=== PATIENT | female | born 1940 | race Caucasian/White ===

== ENCOUNTER 2023-07-19 11:20 | Outpatient (AMB) | payer MEDICARE, OTHER, SELFPAY ==
--- NOTE | 2023-07-19 11:21 | AM.OFFWIN_ITS ---
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 in clinic with c/o hard of hearing on left ear since Saturday. Pt was seen at an in [place] and diagnosed with Otitis media and given Amoxicillin x 7 days - she is still taking, day 3 today. She reports dizziness and feeling of fullness left ear. [facility] Social History Patient Tobacco Use Status: Never used Tobacco Review of Systems Const All systems reviewed & are unremarkable except as noted in HPI and below Physical Exam Vital Signs: Last Vital Signs Temp 97.6 F 07/19/23 11:23 Pulse 81 07/19/23 11:23 BP 130/70 07/19/23 11:23 Pulse Ox 95 07/19/23 11:23 Oxygen Delivery Method Room Air 07/19/23 11:23 BMI result Body Mass Index 24.6 Const General: comfortable and no acute distress HEENT Head: Yes normocephalic and Yes atraumatic Ears: external ears normal, TM normal on the right and TM abnormal (right ear with small amount of blood seen) bulging, erythematous and retracted General nose exam: No nasal discharge present Face and sinus: Yes sinuses nontender Mouth: moist mucous membranes Throat: Yes posterior oropharynx normal Eyes Pupils: Equal, round and reactive pupils present EOM: EOMs intact bilaterally Resp Effort & Inspection: normal respiratory effort and able to speak in complete sentences Auscultation: clear to auscultation bilaterally Cardio Rate: regular rate Rhythm: regular rhythm Neuro Cranial nerves: Yes Equal, round and reactive pupils present Assessment & Plan Assessment & Plan (1) Otitis media: Code(s): H66.90 - Otitis media, unspecified, unspecified ear Qualifiers: Otitis media type: suppurative Chronicity: acute Laterality: left Recurrence: not specified as recurrent Spontaneous tympanic membrane rupture: without spontaneous rupture Qualified Code(s): H66.002 - Acute suppurative otitis media without spontaneous rupture of ear drum, left ear Plan - Complete Abx as directed - Acetaminophen for pain relief - RTC if symptoms worse. Coding Level of Care Code New Pt Level 3 (52120) Diagnoses Acute suppurative otitis media of left ear without spontaneous rupture of tympanic membrane, recurrence not specified H66.002 Otitis media type: suppurative Chronicity: acute Laterality: left Recurrence: not specified as recurrent Spontaneous tympanic membrane rupture: without spontaneous rupture Time Spent (min) 15
[2023-07-19 11:23] VITALS: BP 130/70; PULSE 81; TEMP 36.4; O2SAT 95; BMI 24.6
== END 2023-07-19 11:52 | disposition home or self-care (01) ==
PROVIDERS: Visit Provider Nurse Practitioner Family
DX: H66.002 Acute suppurative otitis media without spontaneous rupture of ear drum, left ear (principal)
CPT/HCPCS: 99203

== ENCOUNTER 2023-12-16 08:38 | Outpatient (REF) | payer MEDICARE, SELFPAY ==
[2023-12-16 08:50] LABS: MANUAL DIFF FLAG NO
[2023-12-16 09:16] LABS: Basophils Percent Auto 0.5 % (0-2); Eosinophils Absolute Auto 0.1 X10*3/uL (0.0-0.4); Eosinophils Percent Auto 1.4 % (0-4); Hemoglobin 14.2 g/dl (12.0-16.0); Imm Gran Abs Auto 0.02 X10*3/uL (0.00-0.03); Imm Gran Pct Auto 0.3 % (0.0-0.4); Lymphocytes Absolute Auto 1.4 X10*3/uL (1.2-4.9); Lymphocytes Percent Auto 21.8 % (20-40); Mean Corpuscular Hemoglobin 31.8 pg (27.0-33.0); Mean Corpuscular Volume 96.4 fL (80.0-98.0); Mean Platelet Volume 10.5 fL (9.4-12.3); Monocytes Absolute Auto 0.7 X10*3/uL (0.1-1.2); Monocytes Percent Auto 10.8 % (2-11); Neutrophils Absolute Auto 4.1 x10*3/uL (2.0-8.3); Neutrophils Percent Auto 65.2 % (45-73); Platelet Count 268 X10*3/uL (160-400); Red Blood Count 4.46 X10*6/uL (4.20-5.50); Red Cell Distribution Width 13.3 % (11.0-16.0); White Blood Count 6.2 X10*3/uL (4.8-10.8)
[2023-12-16 09:51] LABS: Erythrocyte Sedimentation Rate 7 MM/HR (0-20)
[2023-12-16 10:07] LABS: Alanine Aminotransferase 18 U/L (0-31); Albumin Level 4.1 g/dL (3.5-5.0); Alkaline Phosphatase 56 U/L (39-117); Anion Gap 14 (12-20); Aspartate Amino Transferase 19 U/L (5-31); Bilirubin Total 0.6 mg/dL (0.0-1.0); Blood Urea Nitrogen 20 mg/dL (9-16); C Reactive Protein 0.27 mg/dL (< or = 0.50); Calcium 9.5 mg/dL (8.4-10.2); Carbon Dioxide 26 mmol/L (22-29); Chloride 106 mmol/L (96-108); Cholesterol 152 mg/dL (<200); Estimated Glomerular Filt Rate > 60; Free T4 (Free Thyroxine) 0.93 ng/dL (0.71-1.85); Glucose Random 98 mg/dL (60-115); HDL Cholesterol 59 mg/dL (>40); LDL Cholesterol Calculated 68 mg/dL (<100); Potassium 3.7 mmol/L (3.3-5.1); Sodium 142 mmol/L (135-145); Thyroid Stimulating Hormone 1.32 uIU/mL (0.32-4.0); Total Protein 6.4 g/dL (6.5-8.0); Triglycerides 125 mg/dL (<150); Vitamin D 25-OH Total 60.8 ng/mL (>30)
[2023-12-16 13:06] LABS: Folate 14.1 ng/mL (> or = 4.0); Vitamin B12 728 pg/mL (200-900)
== END 2023-12-16 08:39 | disposition home or self-care (01) ==
LOC: HO.LAB 08:38
PROVIDERS: PCP Internal Medicine; Visit Provider Internal Medicine
DX: I48.91 Unspecified atrial fibrillation (principal); E78.00 Pure hypercholesterolemia, unspecified; M35.3 Polymyalgia rheumatica
CPT/HCPCS: 36415; 80053; 80061; 82306; 82607; 82746; 84439; 84443; 85025; 85652; 86140

== ENCOUNTER 2023-12-24 12:46 | Outpatient (AMB) | payer MEDICARE, OTHER, SELFPAY ==
[2023-12-24 12:48] VITALS: BP 104/62; PULSE 67; O2SAT 98; BMI 25.1
--- NOTE | 2023-12-24 12:48 | A.OFFPC_ITS ---
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 Package Handler Required: No Allergies No Known Allergies Allergy (Verified 12/24/23 13:03) Medication List - Last Reconciled 12/24/23 by Nina Daniels PA-C atorvastatin 40 mg PO DAILY lisinopril 20 mg PO BID metoprolol succinate ER 25 mg PO DAILY prednisone 1 mg PO DAILY rivaroxaban (Xarelto) 20 mg PO DAILY sertraline 25 mg PO DAILY Tobacco use date assessed: 12/24/23 Fall risk assessment: No Falls in past year Last assessed Fall Risk: 12/24/23 Dental Screening Dental Screen Date: 12/24/23 Did you have a dental visit in the last 12 months?: Yes Did you have a dental problem in the last 6 months where you did not have access to dental care?: No Was dental information given to patient?: Patient has dentist HPI 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 In review of the notes, patient was seen in the walk in clinic 06/2023 for otitis media. Dexa completed 01/2023. She has recently transitioning from [facility] to [facility]. She follows with [facility] for AFib and follows with a health service coordinator for polymyalgia rheumatica and has an appointment with [facility] in December to discuss left knee replacement. 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 She also mentions she has been having diarrhea intermittently for the last 2 weeks and has 1-2 episodes a day. She has no other concerns or complaints at this time. [facility] Surgical History H/O right knee surgery History of cataract surgery Family History Father Prostate cancer Mother Hypertension Heart attack Brother Heart attack Social History Patient Tobacco Use Status: Never used Tobacco Cognitive needs: No Hearing needs: No Vision needs: No Questionnaire PHQ-9 Over the last 2 weeks, how often have you been bothered by any of the following problems? 1. Little interest or pleasure in doing things: not at all 2. Feeling down, depressed, or hopeless: not at all 3. Trouble falling or staying asleep, or sleeping too much: not at all 4. Feeling tired or having little energy: not at all 5. Poor appetite or overeating: not at all 6. Feeling bad about yourself - or that you are a failure or have let yourself or your family down: not at all 7. Trouble concentrating on things, such as reading the newspaper or watching television: not at all 8. Moving or speaking so slowly that other people could have noticed. Or the opposite - being so fidgety or restless that you have been moving around a lot more than usual: not at all 9. Thoughts that you would be better off or of hurting yourself in some way: not at all Total score: 0 Depression Screening Interpretation: Negative Depression Screening Done: Yes 45513 - PHQ-9 Billing: Yes Source: Developed by Drs. Artemio Jose, Connie Gallegos, Philippe Littlejohn and colleagues, with an educational dulce from [employer]. Thrive Questionnaire Date Thrive assessed: 12/24/23 I am a: Patient What is your living situation today?: I have a steady place to live Within the past 12 months, did the food you bought not last and you didn't have the money to get more?: Never true Within the past 12 months, did you worry whether your food would run out before you got money to buy more?: Never true Do you have trouble paying for medicines?: No Do you have trouble getting transportation to medical appointments?: No Do you have trouble paying your heating and electricity bill?: No Do you have trouble taking care of your child, family member or friend?: No Do you have trouble with day-to-day activities such as bathing, preparing meals, shopping, managing finances, etc.?: No Are you currently unemployed and looking for a job?: No Are you interested in more education?: No Please select the resources that you would like help with: None Currently or been in a relationship where the following occur: No concerns reported THRIVE Score: 0 AUDIT C Alcohol Use Questionnaire (AUDIT-C) 1. How often do you have a drink containing alcohol?: Never 3. How often do you have six or more drinks on one occasion?: Never Total Score: 0 ANH-7 AMB Questionnaire ANH-7 Date ANH - 7 assessed: 12/24/23 Feeling nervous, anxious, or on edge: 0 = Not at all Not being able to stop or control worryin = Not at all Worrying too much about different things: 0 = Not at all Trouble relaxin = Not at all Being so restless that it is hard to sit still: 0 = Not at all Becoming easily annoyed or irritable: 0 = Not at all Feeling afraid as if something awful might happen: 0 = Not at all Total ANH-7 score (0-4 normal; 5-9 mild; 10-14 moderate; 15-21 severe): 0 Source: Developed by Drs. Artemio Jose, Connie Gallegos, Philippe Littlejohn and colleagues, with an educational dulce from [employer]. ANH-7 Assessment Billing ANH-7 Assessment Tool: ANH-7 Assessment 36277 Review of Systems Const Denies body aches, Denies fatigue, Denies fever(s), Denies frequent falls, Denie s headache(s) and Denies weakness Eyes Reports no additional complaints and Denies change in vision ENT Details: History of hiatal hernia Reports Normal hearing present, Denies dysphagia, Denies dizziness, Denies facial pain, Denies headache(s), Denies nasal congestion and Denies odynophagia Card Denies chest pain, Denies syncope, Denies irregular heart rhythm, Denies leg edema, Denies lightheadedness, Denies palpitations and Denies dyspnea Resp Denies cough and Denies dyspnea GI Denies constipation, Denies dysphagia, Denies dyspepsia, Reports diarrhea, Denies nausea, Denies odynophagia and Denies vomiting Denies urinary frequency, Denies dysuria, Denies urinary hesitancy and Denies urinary urgency Musc Details: Left knee pain Denies back pain and Denies myalgias Skin/Breast Reports system reviewed and no additional complaints, except as documented Neuro Reports Normal hearing present, Denies dizziness, Denies syncope, Denies frequent falls, Denies headache(s) and Denies weakness Psych Reports no additional complaints Endo Denies fatigue and Denies palpitations Physical exam (Primary Care) Vital Signs: Last Vital Signs Pulse 67 12/24/23 12:48 BP 104/62 12/24/23 12:48 Pulse Ox 98 12/24/23 12:48 Oxygen Delivery Method Room Air 12/24/23 12:48 BMI result Body Mass Index 25.1 Tobacco/Smoking Status: Tobacco use Status Tobacco use date assessed 12/24/23 12/24/23 12:52 Patient Tobacco Use Status Never used Tobacco 12/24/23 12:52 PHQ-9: PHQ-9 Score PHQ-9: Total score 0 12/24/23 12:52 Depression Screening Interpretation: Negative Thrive Assessment: Date of Thrive Assessment Date Thrive assessed 12/24/23 12/24/23 12:52 Currently or been in a relationship where the following occur: No concerns reported Const General: cooperative, healthy appearing, comfortable and no acute distress Orientation/consciousness: patient oriented x3 HENMT Head: Yes normocephalic Ears: hearing grossly normal bilaterally General nose exam: Normal external nose present Eyes General: appearance normal, both eyes and all related structures Conjunctivae: conjunctivae normal Neck Neck: Yes full ROM and Yes no lymphadenopathy Resp Effort & Inspection: normal respiratory effort Auscultation: clear to auscultation bilaterally, no crackles, no rales, no rhonchi and no wheezes Cardio Rate: regular rate Rhythm: regular rhythm GI Palpation (GI): Soft to palpation, nontender and no guarding Auscultation: Hyperactive bowel sounds present Skin General skin exam: no rashes or lesions noted Neuro General: patient oriented x3 Cranial nerves: Yes Normal hearing present Gait exam (Neuro): Normal gait present Extrem Other: Lateral deviation of the left patella General: Yes full ROM and No edema Psych Affect: normal affect Attitude: cooperative Insight: Good insight present (Psych) Judgement: Good judgement present (Psych) Assessment and Plan Assessment & Plan (1) 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 (2) GERD (gastroesophageal reflux disease): Code(s): K21.9 - Gastro-esophageal reflux disease without esophagitis Plan: Patient takes famotidine and Tums as needed with good relief. Was previously established with Gastroenterology and referred to Gastroenterology today. (3) Osteopenia: Code(s): M85.80 - Other specified disorders of bone density and structure, unspecified site Plan: Last DEXA scan was 2022 we will repeat next year. Continue with weight-bearing exercises as tolerated and dietary calcium intake. (4) Left knee pain: Code(s): M25.562 - Pain in left knee Plan: Lateral deviation of left patella seems to be chronic. Patient has chronic left knee pain and was supposed to have knee replacement several years ago but due to health concerns the procedure was postponed. Is scheduled to see [facility] in December to re-evaluate for left knee replacement. (5) Diarrhea: Code(s): R19.7 - Diarrhea, unspecified Plan: Patient has been diarrhea ongoing for the last 2 weeks. Episodes are 1-2 times per day and typically small amounts. May trial [id number] fiber supplements to bulk the stools or Imodium as needed. Stressed the importance of proper hydration. (6) Polymyalgia rheumatica: Code(s): M35.3 - Polymyalgia rheumatica Plan: On prednisone daily. Continue to follow with health service coordinator. (7) Hypertension: Code(s): I10 - Essential (primary) hypertension Plan: Continue on current blood pressure medication. Avoid salt intake and encourage healthy diet and regular exercise. (8) Hypercholesterolemia: Code(s): E78.00 - Pure hypercholesterolemia, unspecified Plan: Avoid foods that are high in cholesterol such as red meat, fried foods, eggs and baked goods. Triglyceride goal of less than 150 and LDL goal of less than 100. Continue on atorvastatin. Plan This note was constructed using voice recognition software. While every effort has been made to ensure accuracy and apprentice jockey, still areas may have been included sometimes these areas may affect the content or meeting of the given symptoms. Total time spent caring for the patient today was 45 minutes. This includes time spent before the visit reviewing the chart, time spent during the visit, and time spent after the visit and documentation. Orders: Referrals Gastroenterology Referral K21.9 - Gastro-esophageal reflux disease without esophagitis, K22.70 - Felipe's esophagus without dysplasia Coding Level of Care Code New Pt Level 4 (79434) Diagnoses Barretts esophagus K22.70 GERD (gastroesophageal reflux disease) K21.9 Osteopenia M85.80 Left knee pain M25.562 Diarrhea R19.7 Polymyalgia rheumatica M35.3 Hypertension I10 Hypercholesterolemia E78.00 Additional Codes ANH-7 Assessment Billing - ANH-7 Assessment Tool: ANH-7 Assessment 90345 ([id number])
== END 2023-12-24 14:02 | disposition home or self-care (01) ==
DX: M35.3 Polymyalgia rheumatica (principal); K22.70 Barrett's esophagus without dysplasia; K21.9 Gastro-esophageal reflux disease without esophagitis; M85.80 Other specified disorders of bone density and structure, unspecified site; M25.562 Pain in left knee; R19.7 Diarrhea, unspecified; I10 Essential (primary) hypertension; E78.00 Pure hypercholesterolemia, unspecified
CPT/HCPCS: 99214

== ENCOUNTER 2024-01-21 10:42 | Outpatient (AMB) | payer MEDICARE, OTHER, SELFPAY ==
[2024-01-21 10:48] VITALS: BP 108/52; PULSE 67; O2SAT 97; BMI 25.8
--- NOTE | 2024-01-21 10:48 | A.OFFPC_ITS ---
Vital Signs 01/21/24 10:48 Height 5 ft 5 in Weight 155 lb 3.287 oz BMI 25.8 BP 108/52 L Blood Pressure Location Lt brachial Position Sitting Pulse 67 Pulse Source Pulse Oximeter Pulse Oximetry (%) 97 Oxygen Delivery Method Room Air Intake Visit Reasons: 1 month follow up Sociology Faculty Member Required: No Accompanied by: Self / Same As Patient Allergies No Known Allergies Allergy (Verified 01/21/24 10:50) Medication List - Last Reconciled 01/21/24 by Nina Daniels PA-C atorvastatin 40 mg PO DAILY lisinopril 20 mg PO BID metoprolol succinate ER 25 mg PO DAILY prednisone 1 mg PO DAILY rivaroxaban (Xarelto) 20 mg PO DAILY sertraline 25 mg PO DAILY Tobacco use date assessed: 12/24/23 Fall risk assessment: No Falls in past year Last assessed Fall Risk: 01/21/24 Dental Screening Dental Screen Date: 12/24/23 HPI 1 month follow up HPI Details 83 year old female with past history of AFib on anticoagulation, GERD with Felipe's, hypercholesterolemia, hypertension, and polymyalgia rheumatica in for follow up. Patient was seen by [facility] treatment [facility] December 2023. She tells us today she is having a left total knee replacement February [address] Donald at [facility]. She is seeing the arthritis treatment center every 3-4 months and has been taken off of prednisone. She was having diarrhea the last time we saw her and child fiber which helped diarrhea and now has completely resolved. She has yet to see Gastroenterology for Barretts esophagus and has a visit coming up in the next few months. [facility] Surgical History H/O right knee surgery History of cataract surgery Family History Father Prostate cancer Mother Hypertension Heart attack Brother Heart attack Social History Housing: Apartment Patient Tobacco Use Status: Never used Tobacco Tobacco use type: Cigarette e-Cigarette/Vaping Use: Never Used Current occupational status: retired Cognitive needs: No Hearing needs: No Vision needs: No Questionnaire PHQ-9 Over the last 2 weeks, how often have you been bothered by any of the following problems? 1. Little interest or pleasure in doing things: not at all 2. Feeling down, depressed, or hopeless: not at all 3. Trouble falling or staying asleep, or sleeping too much: not at all 4. Feeling tired or having little energy: not at all 5. Poor appetite or overeating: not at all 6. Feeling bad about yourself - or that you are a failure or have let yourself o r your family down: not at all 7. Trouble concentrating on things, such as reading the newspaper or watching television: not at all 8. Moving or speaking so slowly that other people could have noticed. Or the opposite - being so fidgety or restless that you have been moving around a lot more than usual: not at all 9. Thoughts that you would be better off or of hurting yourself in some way: not at all Total score: 0 Depression Screening Interpretation: Negative Depression Screening Done: Yes 45866 - PHQ-9 Billing: Yes Source: Developed by Drs. Artemio Jose, Connie Gallegos, Philippe gan nd colleagues, with an educational dulce from [employer]. Thrive Questionnaire Date Thrive assessed: 12/24/23 AUDIT C Alcohol Use Questionnaire (AUDIT-C) 1. How often do you have a drink containing alcohol?: Never 3. How often do you have six or more drinks on one occasion?: Never Total Score: 0 ANH-7 AMB Questionnaire ANH-7 Date ANH - 7 assessed: 12/24/23 Source: Developed by Drs. Artemio Jose, Connie Gallegos, Philippe Littlejohn and colleagues, with an educational dulce from [employer]. Review of Systems Const Denies body aches, Denies chills and Denies fever(s) Eyes Reports no additional complaints ENT Denies dizziness Card Denies chest pain, Denies edema, Denies irregular heart rhythm, Denies lightheadedness and Denies dyspnea Resp Denies cough and Denies dyspnea GI Denies abdominal pain, Denies constipation, Denies diarrhea, Denies nausea and Denies vomiting Reports no additional complaints Musc Details: Left knee pain Reports no additional complaints and Denies abnormal gait Skin/Breast Reports system reviewed and no additional complaints, except as documented Neuro Denies abnormal gait and Denies dizziness Psych Reports no additional complaints Physical exam (Primary Care) Vital Signs: Last Vital Signs Pulse 67 01/21/24 10:48 BP 108/52 L 01/21/24 10:48 Pulse Ox 97 01/21/24 10:48 Oxygen Delivery Method Room Air 01/21/24 10:48 BMI result Body Mass Index 25.8 Tobacco/Smoking Status: Tobacco use Status Tobacco use date assessed 12/24/23 01/21/24 10:53 Patient Tobacco Use Status Never used Tobacco 01/21/24 10:53 Tobacco use type Cigarette 01/21/24 10:53 e-Cigarette/Vaping Use Never Used 01/21/24 10:53 PHQ-9: PHQ-9 Score PHQ-9: Total score 0 01/21/24 11:18 Depression Screening Interpretation: Negative Thrive Assessment: Date of Thrive Assessment Date Thrive assessed 12/24/23 01/21/24 10:53 Const General: cooperative, healthy appearing, comfortable and no acute distress Orientation/consciousness: patient oriented x3 HENMT Head: Yes normocephalic Ears: hearing grossly normal bilaterally General nose exam: Normal external nose present Eyes General: appearance normal, both eyes and all related structures Conjunctivae: conjunctivae normal Neck Neck: Yes full ROM and Yes no lymphadenopathy Resp Effort & Inspection: normal respiratory effort Auscultation: clear to auscultation bilaterally, no crackles, no rales, no rhonchi and no wheezes Cardio Rate: regular rate Rhythm: regular rhythm Skin General skin exam: no rashes or lesions noted Neuro General: patient oriented x3 Gait exam (Neuro): Normal gait present Extrem General: Yes normal to inspection, Yes full ROM and No edema Psych Affect: normal affect Attitude: cooperative Insight: Good insight present (Psych) Judgement: Good judgement present (Psych) Assessment and Plan Assessment & Plan (1) Diarrhea: Code(s): R19.7 - Diarrhea, unspecified Plan: Has resolved this time continue with fiber as needed. (2) Left knee pain: Code(s): M25.562 - Pain in left knee Plan: Has left total knee replacement in January with the orthopedic surgeons. (3) GERD (gastroesophageal reflux disease): Code(s): K21.9 - Gastro-esophageal reflux disease without esophagitis Plan: Follow up with Gastroenterology next appointment. Plan Follow up in 6 months for annual exam. This note was constructed using voice recognition software. While every effort has been made to ensure accuracy and senior controls engineer, still areas may have been included sometimes these areas may affect the content or meeting of the given symptoms. Total time spent caring for the patient today was 20 minutes. This includes time spent before the visit reviewing the chart, time spent during the visit, and time spent after the visit and documentation. Coding Level of Care Code Est Pt Level 3 (23207) Diagnoses Diarrhea R19.7 Left knee pain M25.562 GERD (gastroesophageal reflux disease) K21.9
== END 2024-01-21 11:42 | disposition home or self-care (01) ==
DX: R19.7 Diarrhea, unspecified (principal); M25.562 Pain in left knee; K21.9 Gastro-esophageal reflux disease without esophagitis
CPT/HCPCS: 99213

== ENCOUNTER 2024-03-10 15:25 | Outpatient (AMB) | payer MEDICARE, OTHER, SELFPAY ==
[2024-03-10 15:25] VITALS: BP 112/62; PULSE 66; O2SAT 97; BMI 25.0
--- NOTE | 2024-03-10 15:25 | A.OFFPC_ITS ---
Vital Signs 03/10/24 15:25 Height 5 ft 5 in Weight 150 lb 5.684 oz BMI 25.0 BP 112/62 Blood Pressure Location Lt brachial Position Sitting Pulse 66 Pulse Source Pulse Oximeter Pulse Oximetry (%) 97 Oxygen Delivery Method Room Air Intake Visit Reasons: Shauna Sinha 02/25 knee replacement Intake Note: Patient is here for hospital discharge follow up. Patient was discharged from [facility] on 02/26/24 Security Sme Required: No Allergies No Known Allergies Allergy (Verified 03/10/24 15:28) Medication List - Last Reconciled 03/10/24 by Nina Daniels PA-C amlodipine 2.5 mg PO DAILY amlodipine 5 mg PO DAILY atorvastatin 40 mg PO DAILY celecoxib (Celebrex) 50 mg PO BID lisinopril 20 mg PO BID metoprolol succinate ER 25 mg PO DAILY rivaroxaban (Xarelto) 20 mg PO DAILY sertraline 25 mg PO DAILY Tobacco use date assessed: 12/24/23 Fall risk assessment: No Falls in past year Last assessed Fall Risk: 03/10/24 Dental Screening Dental Screen Date: 12/24/23 HPI Shauna [facility] 02/25 knee replacement HPI Details 83 year old female with past history of AFib on anticoagulation, GERD with Felipe's, hypercholesterolemia, hypertension, and polymyalgia rheumatica last seen November 2023 coming in for follow up after discharge from [facility] 02/26/2024. Patient was initially admitted to [facility] after left total knee replacement with Dr. Orellana through [facility]. Patient has been working with in-home physical therapy and will transition to outpatient PT in the next few weeks. She initially had a wound vac placed after the surgery which was removed by the surgeon 02/23 without complication and x- ray was done at that time which was normal. She had the sutures out last week. She is currently using Tylenol and celecoxib as needed for pain. She does report morning nausea that resolves within 1 hour of being awake and also fatigue but does mentioned she sleeps very poorly since the surgery. These symptoms began postoperatively. REPLACED BY [facility] Surgical History History of total left knee replacement H/O right knee surgery History of cataract surgery Family History Father Prostate cancer Mother Hypertension Heart attack Brother Heart attack Social History Housing: Apartment Patient Tobacco Use Status: Never used Tobacco Tobacco use type: Cigarette e-Cigarette/Vaping Use: Never Used Current occupational status: retired Cognitive needs: No Hearing needs: No Vision needs: No Questionnaire Thrive Questionnaire Date Thrive assessed: 12/24/23 AUDIT C Alcohol Use Questionnaire (AUDIT-C) 1. How often do you have a drink containing alcohol?: Never 2. How many drinks containing alcohol do you have on a typical day when you are drinking?: 1 or 2 3. How often do you have six or more drinks on one occasion?: Never Total Score: 0 ANH-7 AMB Questionnaire ANH-7 Date ANH - 7 assessed: 12/24/23 Source: Developed by Drs. Artemio Jose, Connie Gallegos, Philippe Littlejohn and colleagues, with an educational dulce from [employer]. Review of Systems Const Denies body aches, Denies chills, Reports fatigue and Denies fever(s) Eyes Reports no additional complaints ENT Reports no additional complaints Card Denies chest pain, Denies edema, Denies irregular heart rhythm, Denies leg edema, Denies lightheadedness and Denies dyspnea Resp Denies dyspnea GI Reports nausea and Denies vomiting Musc Details: Left knee pain Reports abnormal gait (with walker) Neuro Reports abnormal gait (with walker) Endo Reports fatigue Physical exam (Primary Care) Vital Signs: Last Vital Signs Pulse 66 03/10/24 15:25 BP 112/62 03/10/24 15:25 Pulse Ox 97 03/10/24 15:25 Oxygen Delivery Method Room Air 03/10/24 15:25 BMI result Body Mass Index 25.0 Tobacco/Smoking Status: Tobacco use Status Tobacco use date assessed 12/24/23 01/21/24 10:53 Patient Tobacco Use Status Never used Tobacco 01/21/24 10:53 Tobacco use type Cigarette 01/21/24 10:53 e-Cigarette/Vaping Use Never Used 01/21/24 10:53 Thrive Assessment: Date of Thrive Assessment Date Thrive assessed 07/30/24 08/27/24 10:53 Const General: cooperative, healthy appearing, comfortable and no acute distress Orientation/consciousness: patient oriented x3 HENMT Head: Yes normocephalic Ears: hearing grossly normal bilaterally General nose exam: Normal external nose present Eyes General: appearance normal, both eyes and all related structures Conjunctivae: conjunctivae normal Neck Neck: Yes full ROM and Yes no lymphadenopathy Resp Effort & Inspection: normal respiratory effort Auscultation: clear to auscultation bilaterally, no crackles, no rales, no rhonchi and no wheezes Cardio Rate: regular rate Rhythm: regular rhythm Skin General skin exam: no rashes or lesions noted Neuro General: patient oriented x3 Gait exam (Neuro): Normal gait present Extrem General: Yes normal to inspection, Yes full ROM and No edema Psych Affect: normal affect Attitude: cooperative Insight: Good insight present (Psych) Judgement: Good judgement present (Psych) Coding Level of Care Code Est Pt Level 3 (37053) Diagnoses Left knee pain M25.562 Nausea R11.0 Atrial fibrillation I48.91 Assessment & Plan Assessment & Plan (1) Left knee pain: Comment: Status post left total knee replacement January 2024 Code(s): M25.562 - Pain in left knee Category: Medical Plan: She has been doing well postoperatively in working with physical therapy and home and we will transition to outpatient physical therapy within the next few weeks. She is currently using celecoxib and Tylenol as needed for pain. Advised patient to follow up with surgeon as celecoxib can increase the risk of bleed when paired with Xarelto. She feels her pain is well managed at this time and is following with [facility] regularly. (2) Nausea: Code(s): R11.0 - Nausea Category: Medical Plan: Patient admits to summons server nausea without vomiting which typically resolves within 1 hour of being awake. This nausea began postoperatively. Advised to fo llow up with surgeon as this may be related to the use of celecoxib or a pain response. Continue to monitor symptoms and reach out if they worsen or persist. (3) Atrial fibrillation: Code(s): I48.91 - Unspecified atrial fibrillation Category: Medical Plan: Currently working with Dr. Collado through [facility]. Advised to follow up with her exchange trouble shooter as she does report 1 episode of possible atrial fibrillation despite being on anticoagulation and rate control she had 1 episode heart racing. Advised if she can not get a hold of her exchange trouble shooter in the next few days to reach out to the office and Holter monitor will be ordered. Patient understands and will reach out as needed. Plan This note was constructed using voice recognition software. While every effort has been made to ensure accuracy and transcription manager, still areas may have been included sometimes these areas may affect the content or meeting of the given symptoms. Total time spent caring for the patient today was 30 minutes. This includes time spent before the visit reviewing the chart, time spent during the visit, and time spent after the visit and documentation.
== END 2024-03-10 16:03 | disposition home or self-care (01) ==
DX: M25.562 Pain in left knee (principal); R11.0 Nausea; I48.91 Unspecified atrial fibrillation

== ENCOUNTER → 2024-03-10 15:25 | Outpatient (BNVA) | payer MEDICARE, OTHER, SELFPAY | DX: M25.562 Pain in left knee (principal); R11.0 Nausea; I48.91 Unspecified atrial fibrillation | CPT/HCPCS: 99212 ==

== ENCOUNTER 2024-04-02 09:16 | Outpatient (AMB) | payer MEDICARE, OTHER, SELFPAY ==
--- NOTE | 2024-04-02 09:19 | MHC.OFFVIS ---
Vital Signs 04/02/24 09:23 Height 5 ft 5 in Weight 146 lb 13.246 oz BMI 24.4 BP 96/46 L Blood Pressure Location Rt brachial Position Sitting Pulse 76 Intake Visit Reasons: GERD, Felipe's esophagus. Intake Note: Dinora presents as a new patient for evaluation and management GERD and Felipe's esophagus. CC: Patient Allergies No Known Allergies Allergy (Verified 06/03/24 14:18) HPI HPI GERD, Felipe's esophagus.: Details: 83-year-old female here for initial evaluation of GERD and SSBE . She is referred by Nina Daniels. PMX Afib - Xarelto High cholesterol Osteopenia Polymyalgia rheumatica Hypertension Diarrhea Barretts esophagus/GERD * SURGICAL HISTORY Cataract surgery Left total knee replacement Right knee surgery TKR * ALLERGIES: NKDA * [employer] LABS: Laboratory Tests 12/16/23 08:48 WBC 6.2 Hgb 14.2 Hct 43.0 Plt Count 268 Estimated GFR > 60 Total Bilirubin 0.6 AST 19 ALT 18 Alkaline Phosphatase 56 TSH 1.32 TODAY'S VISIT ROV [address] Swift Phone ? tel:[phone] Fax ? Address [address] [place] [address],?[place]?[id number] She is here today with Jackie a healthcare coordinator at [facility] She has a hx of prn budesonide, ? microscopic colitis - never had food allergies. She did have a history of IBS having diarrhea, when she would have it, once in the morning. She felt like this was fairly well controlled until she had her knee replaced recently and then she had to straight weeks of diarrhea. However, this now seems to be resolving and may have been due to all of the medications and stress on her body from surgery. She says that she used to have heartburn but she was progress down from omeprazole to Tums and famotidine. She is uncertain when she had her last EGD but her decision science analyst is as above at [facility] and will try to get those records just to be sure so we know how to guide her going forward. She is quite in agreement with the plan and since I do have over 177 pages of records to look through and we will also request a direct GI records will get together again in 8 weeks so I can give her an opinion on her care going forward. Return office visit in 8 weeks [facility] Medical History Annual physical exam Surgical History Hx of neck surgery History of esophagogastroduodenoscopy (EGD) H/O colonoscopy History of total left knee replacement H/O right knee surgery History of cataract surgery Family History Father Prostate cancer Mother Hypertension Heart attack Brother Heart attack Social History Housing: Apartment Alcohol intake: current Alcohol intake frequency: holidays/special occasions only Patient Tobacco Use Status: Never used Tobacco Tobacco use type: Cigarette e-Cigarette/Vaping Use: Never Used Current occupational status: retired Cognitive needs: No Hearing needs: No Vision needs: No Review of Systems Const Denies fatigue, Denies fever(s), Denies night sweats, Denies poor appetite and Denies weight loss ENT Reports Normal hearing present, Denies dental pain, Denies dysphagia, Denies hearing loss, Denies mouth pain, Denies odynophagia, Denies throat swelling, Denies tongue swelling and Reports other (Dentition adequate) Card Reports no additional complaints Resp Reports no additional complaints GI Details: Denies abdominal pain, Denies melena, Denies bloating, Denies hematochezia, Denies constipation, Denies GI cramping, Denies dysphagia, Denies excessive flatus, Denies early satiety, Reports heartburn, Denies diarrhea, Reports loose stools, Denies nausea, Denies odynophagia, Denies vomiting and Denies hematemesis Skin/Breast Denies pruritus, Denies lesions, Denies rash and Denies jaundice Neuro Reports Normal hearing present and Denies Abnormal speech present Endo Denies fatigue Aller/Immun Denies throat swelling and Denies tongue swelling Physical Exam Vital Signs: Last Vital Signs Pulse 76 04/02/24 09:23 BP 96/46 L 04/02/24 09:23 BMI result Body Mass Index 24.4 Const General: cooperative, no acute distress, well developed and well groomed Nutritional Appearance: average body habitus and well nourished Orientation/consciousness: oriented to person, oriented to place and oriented to time Limitations: No language barrier HEENT Head: Yes normocephalic and Yes atraumatic Eyes General: appearance normal, both eyes and all related structures Pupils: Equal, round and reactive pupils present Neck Neck: Yes normal visual inspection and Yes no lymphadenopathy Thyroid: Thyroid normal Resp Effort & Inspection: normal respiratory effort and able to speak in complete sentences Auscultation: clear to auscultation bilaterally Cardio Rate: regular rate Rhythm: regular rhythm Heart sounds: Normal, physiologic split S2 sound present Peripheral pulses: radial pulses present and posterior tibial pulses present GI Inspection: No distended, No Abdominal panniculus present and Yes obesity Palpation (GI): Soft to palpation, nontender, no guarding, not rigid and No hepatosplenomegaly present Percussion: Yes normal to percussion Auscultation: normal bowel sounds Rectal Exam - Female: deferred Skin General skin exam: no rashes or lesions noted, turgor normal, skin not dry, no jaundice, No spider nevi and no striae Rashes: no rashes Nails: normal Neuro General: oriented to person, oriented to place and oriented to time Cranial nerves: Yes Equal, round and reactive pupils present and Yes Normal hearing present Speech: No Abnormal speech present Extrem Other: very enlarged bilateral pointer MCP joint General: Yes normal to inspection, No clubbing, No cyanosis and No edema Psych Appearance: grossly normal and well kempt Mental Status: mental status grossly normal Speech and movement: Normal speech and movement present Affect: normal affect Attitude: cooperative Thought process: Normal thought process present and not confabulating Thought content: Normal thought content present Insight: Good insight present (Psych) Judgement: Good judgement present (Psych) Assessment & Plan Assessment & Plan (1) Barretts esophagus: Code(s): K22.70 - Felipe's esophagus without dysplasia Category: Medical (2) GERD (gastroesophageal reflux disease): Code(s): K21.9 - Gastro-esophageal reflux disease without esophagitis Category: Medical Plan ROV [address] Swift Phone ? tel:[phone] Fax ? Address [address] [place] [address],?[place]?[phone] She is here today with Jackie a healthcare coordinator at [facility] She has a hx of prn budesonide, ? microscopic colitis - never had food allergies. She did have a history of IBS having diarrhea, when she would have it, once in the morning. She felt like this was fairly well controlled until she had her knee replaced recently and then she had to straight weeks of diarrhea. However, this now seems to be resolving and may have been due to all of the medications and stress on her body from surgery. She says that she used to have heartburn but she was progress down from omeprazole to Tums and famotidine. She is uncertain when she had her last EGD but her decision science analyst is as above at [facility] and will try to get those records just to be sure so we know how to guide her going forward. She is quite in agreement with the plan and since I do have over 177 pages of records to look through and we will also request a direct GI records will get together again in 8 weeks so I can give her an opinion on her care going forward. Return office visit in 8 weeks Orders: Orders EGD - GI Use Only 04/02/24 K21.9 - Gastro-esophageal reflux disease without esophagitis, K22.70 - Felipe's esophagus without dysplasia [place] barium swallow 04/02/24 K21.9 - Gastro-esophageal reflux disease without esophagitis, K22.70 - Felipe's esophagus without dysplasia Coding Level of Care Code New Pt Level 3 (66962) Diagnoses Barretts esophagus K22.70 GERD (gastroesophageal reflux disease) K21.9
[2024-04-02 09:23] VITALS: BP 96/46; PULSE 76; BMI 24.4
== END 2024-04-02 10:22 | disposition home or self-care (01) ==
LOC: HO.HGI 09:17
PROVIDERS: Visit Provider Nurse Practitioner
DX: K22.70 Barrett's esophagus without dysplasia (principal); K21.9 Gastro-esophageal reflux disease without esophagitis
CPT/HCPCS: 99203

== ENCOUNTER → 2024-04-02 09:16 | Outpatient (BNVA) | payer MEDICARE, OTHER, SELFPAY | PROVIDERS: Visit Provider Nurse Practitioner | DX: K21.9 Gastro-esophageal reflux disease without esophagitis (principal); K22.70 Barrett's esophagus without dysplasia | CPT/HCPCS: 99202 ==

== ENCOUNTER 2024-05-26 09:12 | Outpatient (REF) | payer MEDICARE, OTHER, SELFPAY ==
[2024-05-26 09:29] LABS: MANUAL DIFF FLAG NO
[2024-05-26 10:54] LABS: Basophils Percent Auto 0.5 % (0-2); Eosinophils Absolute Auto 0.2 X10*3/uL (0.0-0.4); Hematocrit 37.7 % (37.0-47.0); Hemoglobin 12.5 g/dl (12.0-16.0); Imm Gran Abs Auto 0.01 X10*3/uL (0.00-0.03); Imm Gran Pct Auto 0.2 % (0.0-0.4); Lymphocytes Absolute Auto 1.8 X10*3/uL (1.2-4.9); Lymphocytes Percent Auto 31.9 % (20-40); Mean Corpuscular HGB Conc 33.2 g/dl (31.0-35.0); Mean Corpuscular Hemoglobin 30.3 pg (27.0-33.0); Mean Corpuscular Volume 91.3 fL (80.0-98.0); Mean Platelet Volume 10.8 fL (9.4-12.3); Monocytes Absolute Auto 0.6 X10*3/uL (0.1-1.2); Monocytes Percent Auto 10.4 % (2-11); Neutrophils Absolute Auto 3.1 x10*3/uL (2.0-8.3); Platelet Count 266 X10*3/uL (160-400); Red Blood Count 4.13 X10*6/uL (4.20-5.50); Red Cell Distribution Width 13.9 % (11.0-16.0); White Blood Count 5.7 X10*3/uL (4.8-10.8)
[2024-05-26 11:10] LABS: Estimated Average Glucose 123 mg/dL; Hemoglobin A1C 128.2191 umol/L; Hemoglobin A1c % 5.9 % (<6.0); Total Hemoglobin (HGBA1C) 3141.9974 umol/L
[2024-05-26 11:37] LABS: Cholesterol 136 mg/dL (<200); HDL Cholesterol 43 mg/dL (>40); LDL Cholesterol Calculated 65 mg/dL (<100); Triglycerides 140 mg/dL (<150)
== END 2024-05-26 09:13 | disposition home or self-care (01) ==
LOC: HO.LAB 09:12
PROVIDERS: PCP Internal Medicine
DX: K22.70 Barrett's esophagus without dysplasia (principal); I10 Essential (primary) hypertension; I48.91 Unspecified atrial fibrillation; E78.00 Pure hypercholesterolemia, unspecified; E11.65 Type 2 diabetes mellitus with hyperglycemia
CPT/HCPCS: 36415; 80061; 83036; 85025

== ENCOUNTER 2024-06-03 12:25 | Outpatient (AMB) | payer MEDICARE, OTHER, SELFPAY ==
[2024-06-03 12:33] VITALS: BP 131/50; PULSE 60; BMI 24.9
--- NOTE | 2024-06-03 12:33 | A.OFFVIS_ITS ---
Vital Signs 06/03/24 12:33 Height 5 ft 4 in Weight 145 lb BMI 24.9 BP 131/50 L Blood Pressure Location Lt brachial Position Sitting Pulse 60 Intake Visit Reasons: 8 weeks f/u Intake Note: Patient 8 weeks follow up Patient cc: acid reflex on and off/diarrhea Funeral Home Attendant Required: No Accompanied by: Self / Same As Patient Allergies No Known Allergies Allergy (Verified 06/03/24 12:34) HPI HPI 8 weeks f/u : Details: Assessment & Plan (1) Barretts esophagus: Code(s): K22.70 - Felipe's esophagus without dysplasia Category: Medical (2) GERD (gastroesophageal reflux disease): Code(s): K21.9 - Gastro-esophageal reflux disease without esophagitis Category: Medical Orders: Orders EGD - GI Use Only Today K21.9 - Gastro-esophageal reflux disease without esophagitis, K22.70 - Felipe's esophagus without dysplasia FL barium swallow Today K21.9 - Gastro-esophageal reflux disease without esophagitis, K22.70 - Felipe's esophagus without dysplasia She is here today with Jackie a healthcare coordinator at [facility] She has a hx of prn budesonide, ? microscopic colitis - never had food allergies. She did have a history of IBS having diarrhea, when she would have it, once in the morning. She felt like this was fairly well controlled until she had her knee replaced recently and then she had to straight weeks of diarrhea. However, this now seems to be resolving and may have been due to all of the medications and stress on her body from surgery. She says that she used to have heartburn but she was progress down from omeprazole to Tums and famotidine. She is uncertain when she had her last EGD but her cafeteria operator is as above at [facility] and will try to get those records just to be sure so we know how to guide her going forward. She is quite in agreement with the plan and since I do have over 140 pages of records to look through and we will also request a direct GI records will get together again in 8 weeks so I can give her an opinion on her care going forward. EGD BIOPSY BARIUM SWALLOW TODAY'S VISIT LYMPHOCYTIC-PLASMACYTIC COLLITIS She is very bothered by diarrhea, will do a year of budesonide and then a taper. She is not taking the famotidine every day, and I advise her to do as directed r/t the SSBE. She has not yet heard about the procedures or barium swallow. Her AFib is well controlled and she denies any respiratory problems. There are no prior problems with anesthesia or sedation. No ID problems ROV next avail [facility] Medical History (Updated 06/03/24 @ 13:02 by RAMBO Santos) Annual physical exam Surgical History Hx of neck surgery History of esophagogastroduodenoscopy (EGD) H/O colonoscopy History of total left knee replacement H/O right knee surgery History of cataract surgery Family History Father Prostate cancer Mother Hypertension Heart attack Brother Heart attack Social History Housing: Apartment Alcohol intake: current Alcohol intake frequency: holidays/special occasions only Patient Tobacco Use Status: Never used Tobacco Tobacco use type: Cigarette e-Cigarette/Vaping Use: Never Used Current occupational status: retired Cognitive needs: No Hearing needs: No Vision needs: No Review of Systems Const Denies fatigue, Denies fever(s), Denies night sweats, Denies poor appetite and Denies weight loss Eyes Details: glasses Reports requires corrective lenses ENT Reports Normal hearing present, Denies dental pain, Denies dysphagia, Denies hearing loss, Denies mouth pain, Denies odynophagia, Denies throat swelling, Denies tongue swelling and Reports other (Dentition adequate) Card Reports no additional complaints Resp Reports no additional complaints GI Details: Denies abdominal pain, Denies melena, Denies bloating, Denies hematochezia, Denies constipation, Denies GI cramping, Denies dysphagia, Denies excessive flatus, Denies early satiety, Reports heartburn, Reports diarrhea, Denies nausea, Denies odynophagia, Denies vomiting and Denies hematemesis Skin/Breast Denies pruritus, Denies lesions, Denies rash and Denies jaundice Neuro Reports Normal hearing present and Denies Abnormal speech present Endo Denies fatigue Aller/Immun Denies throat swelling and Denies tongue swelling Physical Exam Vital Signs: Last Vital Signs Pulse 60 06/03/24 12:33 BP 131/50 L 06/03/24 12:33 BMI result Body Mass Index 24.9 Const General: cooperative, no acute distress, well developed and well groomed Nutritional Appearance: average body habitus and well nourished Orientation/consciousness: oriented to person, oriented to place and oriented to time Limitations: No language barrier HEENT Head: Yes normocephalic and Yes atraumatic Eyes General: appearance normal, both eyes and all related structures Pupils: Equal, round and reactive pupils present Neck Neck: Yes normal visual inspection and Yes no lymphadenopathy Thyroid: Thyroid normal Resp Effort & Inspection: normal respiratory effort and able to speak in complete sentences Auscultation: clear to auscultation bilaterally Cardio Rate: regular rate Rhythm: regular rhythm Heart sounds: Normal, physiologic split S2 sound present Peripheral pulses: radial pulses present and posterior tibial pulses present GI Inspection: No distended and No Abdominal panniculus present Palpation (GI): Soft to palpation, nontender, no guarding, not rigid and No hepatosplenomegaly present Percussion: Yes normal to percussion Auscultation: normal bowel sounds Rectal Exam - Female: deferred Skin General skin exam: no rashes or lesions noted, turgor normal, skin not dry, no jaundice, No spider nevi and no striae Rashes: no rashes Nails: normal Neuro General: oriented to person, oriented to place and oriented to time Cranial nerves: Yes Equal, round and reactive pupils present and Yes Normal hearing present Speech: No Abnormal speech present Extrem General: Yes normal to inspection, No clubbing, No cyanosis and No edema Psych Appearance: grossly normal and well kempt Mental Status: mental status grossly normal Speech and movement: Normal speech and movement present Affect: normal affect Attitude: cooperative Thought process: Normal thought process present and not confabulating Thought content: Normal thought content present Insight: Good insight present (Psych) Judgement: Good judgement present (Psych) Assessment & Plan Assessment & Plan (1) Lymphocytic colitis: Code(s): K52.832 - Lymphocytic colitis Category: Medical (2) GERD (gastroesophageal reflux disease): Code(s): K21.9 - Gastro-esophageal reflux disease without esophagitis Category: Medical (3) Barretts esophagus: Code(s): K22.70 - Felipe's esophagus without dysplasia Category: Medical (4) Diarrhea: Code(s): R19.7 - Diarrhea, unspecified Category: Medical Plan LYMPHOCYTIC-PLASMACYTIC COLLITIS She is very bothered by diarrhea, will do a year of budesonide and then a taper. She is not taking the famotidine every day, and I advise her to do as directed r/t the SSBE. She has not yet heard about the procedures or barium swallow. Her AFib is well controlled and she denies any respiratory problems. There are no prior problems with anesthesia or sedation. No ID problems ROV next avail Medications: New budesonide DR-ER 9 mg (3 x 3 mg) PO DAILY 90 ea 6RF K52.832 - Lymphocytic colitis famotidine 40 mg PO DAILY 30 tabs 6RF K21.9 - Gastro-esophageal reflux disease without esophagitis, K22.70 - Felipe's esophagus without dysplasia, K52.832 - L ymphocytic colitis, R19.7 - Diarrhea, unspecified Coding Level of Care Code Est Pt Level 3 (26003) Diagnoses Lymphocytic colitis K52.832 GERD (gastroesophageal reflux disease) K21.9 Barretts esophagus K22.70 Diarrhea R19.7
== END 2024-06-03 13:17 | disposition home or self-care (01) ==
PROVIDERS: PCP Internal Medicine; Visit Provider Nurse Practitioner
DX: K52.832 Lymphocytic colitis (principal); K21.9 Gastro-esophageal reflux disease without esophagitis; K22.70 Barrett's esophagus without dysplasia; R19.7 Diarrhea, unspecified
CPT/HCPCS: 99213

== ENCOUNTER → 2024-06-03 12:25 | Outpatient (BNVA) | payer MEDICARE, OTHER, SELFPAY | PROVIDERS: PCP Internal Medicine; Visit Provider Nurse Practitioner | DX: Z00.00 Encounter for general adult medical examination without abnormal findings (principal); K52.832 Lymphocytic colitis; K21.9 Gastro-esophageal reflux disease without esophagitis; K22.70 Barrett's esophagus without dysplasia; M35.3 Polymyalgia rheumatica; I10 Essential (primary) hypertension; E78.00 Pure hypercholesterolemia, unspecified; I48.91 Unspecified atrial fibrillation; M85.80 Other specified disorders of bone density and structure, unspecified site; L03.90 Cellulitis, unspecified; L30.9 Dermatitis, unspecified; R19.7 Diarrhea, unspecified; Z79.01 Long term (current) use of anticoagulants; Z79.899 Other long term (current) drug therapy | CPT/HCPCS: 96127; 99212 ==

== ENCOUNTER 2024-06-03 13:50 | Outpatient (AMB) | payer MEDICARE, OTHER, SELFPAY ==
[2024-06-03 13:57] VITALS: BP 126/74; PULSE 60; O2SAT 98; BMI 25.4
--- NOTE | 2024-06-03 13:57 | AM.OFFVISMDC ---
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 Accompanied by: Daughter Allergies No Known Allergies Allergy (Verified 06/03/24 14:18) Medication List - Last Reconciled 06/03/24 by Nina Daniels PA-C amlodipine 2.5 mg PO DAILY amlodipine 5 mg PO DAILY atorvastatin 40 mg PO DAILY B complex with M-lymbpwvop-Wu caps PO budesonide DR-ER 9 mg (3 x 3 mg) PO DAILY cholecalciferol (vitamin D3) 50 mcg PO DAILY [collagen protein powder PO DAILY] famotidine 40 mg PO DAILY lisinopril 20 mg PO BID metoprolol succinate ER 25 mg PO DAILY acagvjjodsiq-ozlzwghp-alpiiu 1 tab PO DAILY rivaroxaban (Xarelto) 20 mg PO DAILY sertraline 25 mg PO DAILY Do you need a note to return to daycare/school/sports/work: No HPI AWV HPI Details 84-year-old female with past medical history of atrial fibrillation on anticoagulation, GERD with Felipe's esophagus, hypercholesterolemia, hypertension and polymyalgia rheumatica last seen 02/2024 coming in for annual wellness exam.? In review of the notes patient was seen by GI 04/02/2024 scheduled for EGD and barium swallow. Patient follows with [facility] Cardiology and Rheumatology through arthritis treatment center. her spine supervisor been managing her bone density scans and she is due for 1. She states she will occasionally have itchiness all over her body and has been using Aveeno lotion. she has no other concerns today [facility] Medical History Annual physical exam Surgical History Hx of neck surgery History of esophagogastroduodenoscopy (EGD) H/O colonoscopy History of total left knee replacement H/O right knee surgery History of cataract surgery Family History Father Prostate cancer Mother Hypertension Heart attack Brother Heart attack Social History Housing: Apartment Alcohol intake: current Alcohol intake frequency: holidays/special occasions only Patient Tobacco Use Status: Never used Tobacco Tobacco use type: Cigarette e-Cigarette/Vaping Use: Never Used Current occupational status: retired Cognitive needs: No Hearing needs: No Vision needs: No Questionnaire Medicare Wellness Checkup What is your age?: 80 or older What gender do you identify with?: female During the past 4 weeks, how much have you been bothered by emotional problems such as feeling anxious, depressed, irritable, sad or downhearted, and blue?: slightly During the past 4 weeks, has your physical & emotional health limited your social activities with family, friends, neighbors, or groups?: not at all During the past 4 weeks, how much bodily pain have you generally had?: very mild pain During the past 4 weeks, was someone available to help you if you needed & wanted help?: yes, as much as I wanted During the past 4 weeks, what was the hardest physical activity you could do for at least 2 minutes?: moderate Can you get to places out of walking distance without help? (For eg., can you travel alone on buses, taxis or drive your car?): Yes Can you go shopping for groceries or clothes without someone's help?: Yes Can you prepare your own meals?: Yes Can you do your housework without help?: Yes Because of any health problems, do you need the help of another person with your personal care needs such as eating, bathing, dressing or getting around the house?: No Can you handle your own money without help?: Yes During the past 4 weeks, how would you rate your health in general?: good During the past 4 weeks how have things been going for you?: pretty well Are you having difficulties driving your car?: no Do you always fasten your seat belt when you are in a car?: yes, usually During past 4 weeks, have you been bothered by the following: never: Falling or dizzy when standing up, Sexual problems?, Teeth or denture problems? and Problems using the telephone? and seldom: Trouble eating well? and Tiredness or fatigue? Have you fallen 2 or more times in the past year?: No Are you afraid of falling?: No Are you a smoker?: no During the past 4 weeks, how many drinks of wine, beer, or other alcoholic beverages did you have?: 2-5 drinks per week Do you exercise for about 20 minutes 3 or more times a week?: yes, some of the time Have you been given information to help with the following?: no: Hazards in your house that might hurt you? and no: Keeping track of your medications? How often do you have trouble taking medicines the way you have been told to take them?: I always take medicine as prescribed How confident are you that you can control & manage most of your health problems?: very confident What is your race?: White PHQ-9 Over the last 2 weeks, how often have you been bothered by any of the following problems? 1. Little interest or pleasure in doing things: not at all 2. Feeling down, depressed, or hopeless: not at all 3. Trouble falling or staying asleep, or sleeping too much: not at all 4. Feeling tired or having little energy: several days 5. Poor appetite or overeating: not at all 6. Feeling bad about yourself - or that you are a failure or have let yourself or your family down: not at all 7. Trouble concentrating on things, such as reading the newspaper or watching television: not at all 8. Moving or speaking so slowly that other people could have noticed. Or the opposite - being so fidgety or restless that you have been moving around a lot more than usual: not at all 9. Thoughts that you would be better off or of hurting yourself in some way: not at all Total score: 1 Depression Screening Interpretation: Negative Depression Screening Done: Yes 02412 - PHQ-9 Billing: Yes Source: Developed by Drs. Artemio Jose, Connie Gallegos, Philippe Littlejohn and colleagues, with an educational dulce from [employer]. PHQ-2/PHQ-9 PHQ-2 Over the last 2 weeks, how often have you been bothered by any of the following problems? 1. Little interest or pleasure in doing things: not at all 2. Feeling down, depressed, or hopeless: not at all Total score: 0 If score is 3 or greater, continue 3. Trouble falling or staying asleep, or sleeping too much: not at all 4. Feeling tired or having little energy: several days 5. Poor appetite or overeating: not at all 6. Feeling bad about yourself - or that you are a failure or have let yourself or your family down: not at all 7. Trouble concentrating on things, such as reading the newspaper or watching television: not at all 8. Moving or speaking so slowly that other people could have noticed. Or the opposite - being so fidgety or restless that you have been moving around a lot more than usual: not at all 9. Thoughts that you would be better off or of hurting yourself in some way: not at all Total score: 1 0-4 None-Minimal, 5-9 Mild, 10-14 Moderate, 15-19 Moderately Severe, 20-27 Severe Source: Developed by Drs. Artemio Jose, Connie Gallegos, Philippe Littlejohn and colleagues, with an educational dulce from [employer]. Thrive Questionnaire Date Thrive assessed: 06/03/24 I am a: Patient What is your living situation today?: I have a steady place to live Within the past 12 months, did the food you bought not last and you didn't have the money to get more?: Never true Within the past 12 months, did you worry whether your food would run out before you got money to buy more?: Never true Do you have trouble paying for medicines?: No Do you have trouble getting transportation to medical appointments?: No Do you have trouble paying your heating and electricity bill?: No Do you have trouble taking care of your child, family member or friend?: No Do you have trouble with day-to-day activities such as bathing, preparing meals, shopping, managing finances, etc.?: No Are you currently unemployed and looking for a job?: No Are you interested in more education?: No Please select the resources that you would like help with: None Currently or been in a relationship where the following occur: No concerns reported THRIVE Score: 0 ANH-7 AMB Questionnaire ANH-7 Date ANH - 7 assessed: 06/03/24 Feeling nervous, anxious, or on edge: 0 = Not at all Not being able to stop or control worryin = Not at all Worrying too much about different things: 0 = Not at all Trouble relaxin = Not at all Being so restless that it is hard to sit still: 0 = Not at all Becoming easily annoyed or irritable: 0 = Not at all Feeling afraid as if something awful might happen: 0 = Not at all Total ANH-7 score (0-4 normal; 5-9 mild; 10-14 moderate; 15-21 severe): 0 Source: Developed by Drs. Artemio Jose, Connie Gallegos, Philippe Littlejohn and colleagues, with an educational dulce from [employer]. Review of Systems Const Denies body aches, Denies chills, Denies fever(s), Denies headache(s) and Denies poor appetite Eyes Reports no additional complaints ENT Denies dysphagia, Denies dizziness, Denies headache(s) and Denies odynophagia Card Denies chest pain, Denies syncope, Denies edema, Denies irregular heart rhythm, Denies lightheadedness and Denies dyspnea Resp Denies cough and Denies dyspnea GI Denies abdominal pain, Denies constipation, Denies dysphagia, Reports diarrhea, Denies nausea, Denies odynophagia and Denies vomiting Reports no additional complaints Musc Reports no additional complaints and Denies abnormal gait Skin/Breast Reports system reviewed and no additional complaints, except as documented Neuro Denies abnormal gait, Denies dizziness, Denies syncope and Denies headache(s) Psych Reports no additional complaints Physical Exam Vital Signs: Last Vital Signs Pulse 60 06/03/24 13:57 BP 126/74 06/03/24 13:57 Pulse Ox 98 06/03/24 13:57 Oxygen Delivery Method Room Air 06/03/24 13:57 BMI result Body Mass Index 25.4 Const General: cooperative, healthy appearing, comfortable and no acute distress Orientation/consciousness: patient oriented x3 HEENT Head: Yes normocephalic Ears: hearing grossly normal bilaterally, external ears normal, TM's normal bilaterally and EAC's normal General nose exam: Normal external nose present Face and sinus: Yes normal facial exam and Yes sinuses nontender Mouth: Normal oral and palatal mucosa present and tongue normal Throat: Yes posterior oropharynx normal Eyes General: appearance normal, both eyes and all related structures Conjunctivae: conjunctivae normal Pupils: Equal, round and reactive pupils present EOM: EOMs intact bilaterally and No Nystagmus present Neck Neck: Yes normal visual inspection, Yes full ROM and Yes no lymphadenopathy Chest Chest palpation & inspection: normal inspection of the chest Resp Effort & Inspection: normal respiratory effort Auscultation: clear to auscultation bilaterally, no crackles, no rales, no rhonchi, no wheezes and breath sounds present Cardio Rate: regular rate Rhythm: regular rhythm Peripheral pulses: radial pulses present and dorsalis pedis present GI Inspection: Yes normal to inspection and No Abdominal wall edema Palpation (GI): Soft to palpation, not firm and nontender Auscultation: normal bowel sounds Rectal Exam - Female: deferred General: Yes no CVA tenderness Back/Spine/Pelvis Back: no CVA tenderness Skin General skin exam: no rashes or lesions noted Neuro Other: Patient cognitively intact and able to make well informed decisions about her health. General: patient oriented x3 Cranial nerves: Yes Equal, round and reactive pupils present, Yes Midline tongue present, Yes Ability to bilaterally elevate shoulders present and No Nystagmus present Gait exam (Neuro): Normal gait present Extrem Other: Left lower extremity having redness, warmth and swelling. No tenderness to palpation, pain, redness or swelling over bilateral calves. Does have left lower extremity edema as well General: Yes normal to inspection, Yes full ROM, No no pedal edema and No edema Psych Speech and movement: Normal speech and movement present Affect: normal affect Insight: Good insight present (Psych) Judgement: Good judgement present (Psych) Assessment & Plan Assessment & Plan (1) Annual wellness visit: Code(s): Z00.00 - Encounter for general adult medical examination without abnormal findings Plan: Patient is up-to-date on all recommended routine screenings and vaccinations for her age. She is due for bone density scan which is managed by her spine supervisor who is also managing her osteopenia. Advised patient to reach out if her spine supervisor is not order this test has been can order in the office as well. [place] of care was reviewed with patient patient was provided with a written screening schedule. Healthcare proxy/ MOLST forms were reviewed with patient patient and she has these completed and will bring them to the office. (2) Lymphocytic colitis: Code(s): K52.832 - Lymphocytic colitis Plan: Currently following with Gastroenterology and scheduled to have upper endoscopy with colonoscopy (3) GERD (gastroesophageal reflux disease): Code(s): K21.9 - Gastro-esophageal reflux disease without esophagitis Plan: Avoid trigger foods such as citrus, tomato products, soda, caffeine, spicy foods and other foods that may be irritating to your stomach. Avoid laying flat 3-4 hours after eating and elevate the head of the bed 30 degrees to prevent acid from moving into the esophagus. Continue on famotidine 40 mg (4) Barretts esophagus: Code(s): K22.70 - Felipe's esophagus without dysplasia Plan: Continue on famotidine 40 mg and continue with low acidity diet (5) Polymyalgia rheumatica: Code(s): M35.3 - Polymyalgia rheumatica Plan: Currently following with arthritis treatment center was previously on prednisone but is no longer and treatment for the polymyalgia. Continue to follow up with Rheumatology (6) Hypertension: Code(s): I10 - Essential (primary) hypertension Plan: Continue on current blood pressure medication. Avoid salt intake and encourage healthy diet and regular exercise. (7) Hypercholesterolemia: Code(s): E78.00 - Pure hypercholesterolemia, unspecified Plan: Avoid foods that are high in cholesterol such as red meat, fried foods, eggs and baked goods. Triglyceride goal of less than 150 and LDL goal of less than 100. Continue on atorvastatin 40 (8) Atrial fibrillation: Code(s): I48.91 - Unspecified atrial fibrillation Plan: Currently on anticoagulation with Xarelto and on rate control with metoprolol. Continue to follow with [facility] Cardiology (9) Osteopenia: Code(s): M85.80 - Other specified disorders of bone density and structure, unspecified site Plan: Currently following with rheumatology and will have bone density scan done this year. (10) Cellulitis: Code(s): L03.90 - Cellulitis, unspecified Plan: Patient having redness, swelling and warmth of left lower extremity without pain. Bilateral calves are nontender nonerythematous and not swollen. Low suspicion for DVT at this time. Patient states the redness has been consistent since her knee surgery in December however given the presentation we will treat for cellulitis with Keflex for 5 days. Advised patient to reach out to the office if redness or warmth does not improve. (11) Dermatitis: Code(s): L30.9 - Dermatitis, unspecified Plan: Patient complaining of generalized itchiness on exam does have dry flaky skin. Advised to discontinue Aveeno and try a topical emollients such as Lubriderm, Aquaphor or Eucerin as they are thicker and create a barrier for the skin. If itching continues or rash worsens to reach out to the office. Plan This note was constructed using voice recognition software. While every effort has been made to ensure accuracy and senior information developer, still areas may have been included sometimes these areas may affect the content or meeting of the given symptoms. Total time spent caring for the patient today was 30 minutes. This includes time spent before the visit reviewing the chart, time spent during the visit, and time spent after the visit and documentation. Medications: New cephalexin take with food and water 500 mg PO QID 5 days 20 caps 0RF Quality Reporting (2019) Depression/Bipolar (159/160/161/177) PHQ-9: Total score: 1 Coding Level of Care Code Medicare Subsequent (G0439) Est Pt Level 3 (32115) Diagnoses Annual wellness visit Z00.00 Lymphocytic colitis K52.832 GERD (gastroesophageal reflux disease) K21.9 Barretts esophagus K22.70 Polymyalgia rheumatica M35.3 Hypertension I10 Hypercholesterolemia E78.00 Atrial fibrillation I48.91 Osteopenia M85.80 Cellulitis L03.90 Dermatitis L30.9 CPT Codes Advance Care Planning - Time spent: 1-15 minutes, not on file ([id number]) Additional Codes PHQ-9 - 15962 - PHQ-9 Billing: Yes ([id number]) Advance Care Planning Advance Care Planning discussion: Exists, not on file Date of discussion: 06/03/24 Who was present: Patient, daughter Forms completed: Health Care Proxy and MOLST Time spent: 1-15 minutes, not on file Actual minutes spent: 5 Did not discuss due to Cultural/Spiritual beliefs: No
== END 2024-06-03 14:45 | disposition home or self-care (01) ==
DX: Z00.00 Encounter for general adult medical examination without abnormal findings (principal); M35.3 Polymyalgia rheumatica; I48.91 Unspecified atrial fibrillation; L03.90 Cellulitis, unspecified; K52.832 Lymphocytic colitis; K21.9 Gastro-esophageal reflux disease without esophagitis; K22.70 Barrett's esophagus without dysplasia; I10 Essential (primary) hypertension; E78.00 Pure hypercholesterolemia, unspecified; M85.80 Other specified disorders of bone density and structure, unspecified site; L30.9 Dermatitis, unspecified

== ENCOUNTER 2024-09-01 13:50 | Outpatient (AMB) | payer MEDICARE, OTHER, SELFPAY ==
--- NOTE | 2024-09-01 13:57 | MHC.PC.OV ---
Vital Signs 09/01/24 13:58 Height 5 ft 4 in Weight 148 lb 4 oz BMI 25.4 BP 120/70 Blood Pressure Location Lt brachial Position Sitting Pulse 68 Pulse Source Pulse Oximeter Temp 97.3 F Temp Source Temporal Artery Scan Pulse Oximetry (%) 96 Oxygen Delivery Method Room Air Intake Visit Reasons: f/u Afib Intake Note: Patient is here to follow up on Afib. Food Assembler Kitchen Required: No Coffee Maker Servicer: Present Accompanied by: Nurse Allergies No Known Allergies Allergy (Verified 09/01/24 13:58) Tobacco use date assessed: 09/01/24 Fall risk assessment: No Falls in past year Last assessed Fall Risk: 09/01/24 Dental Screening Dental Screen Date: 09/01/24 Did you have a dental visit in the last 12 months?: Yes Did you have a dental problem in the last 6 months where you did not have access to dental care?: No Was dental information given to patient?: Patient has dentist HPI f/u Afib HPI Details 84-year-old female with past medical history of atrial fibrillation on anticoagulation, GERD with Felipe's esophagus, hypercholesterolemia, hypertension and polymyalgia rheumatica last seen 05/2024 coming in for follow up.?In review of the notes, [place] [facility] [place] continue on statin, beta-cole and follow up with Dr. Marroquin in 6 months. 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 The patient is an 84-year-old female presenting with back pain. Her hypertension is monitored regularly, and medication management is adjusted to optimize blood pressure control. Cardiology recently decreased amlodipine from 7.5 to 5 mg. She also completed Holter monitor with the assurance sourcing manager and is awaiting results at this time. She is scheduled to see a retina specialist in September. The dermatitis on her lower extremities has resolved. She does mentioned over the last several weeks she has noticed pain in the sacral area she attributes to stationary bike. [facility] Medical History Annual physical exam Surgical History Hx of neck surgery History of esophagogastroduodenoscopy (EGD) H/O colonoscopy History of total left knee replacement H/O right knee surgery History of cataract surgery Family History (Updated 09/01/24 @ 14:05 by HAROLDO Manjarrez) Father Prostate cancer Mother Hypertension Heart attack Brother Heart attack Other Substance use disorder Social History (Updated 09/01/24 @ 14:05 by HAROLDO Manjarrez) Housing: Apartment Alcohol intake: current Alcohol intake frequency: a few times a week Patient Tobacco Use Status: Never used Tobacco Tobacco use type: Cigarette e-Cigarette/Vaping Use: Never Used Second Hand Smoke Exposure: No service: No Current occupational status: retired Cognitive needs: No Hearing needs: No Vision needs: No Questionnaire Thrive Questionnaire Date Thrive assessed: 06/03/24 ANH-7 AMB Questionnaire ANH-7 Date ANH - 7 assessed: 06/03/24 Source: Developed by Drs. Artemio Jose, Connie Gallegos, Philippe Littlejohn and colleagues, with an educational dulce from [employer]. Review of Systems Const Denies body aches, Denies chills, Denies fever(s), Denies headache(s) and Denies poor appetite Eyes Reports no additional complaints ENT Denies dizziness and Denies headache(s) Card Denies chest pain, Denies lightheadedness and Denies dyspnea Resp Denies dyspnea GI Reports no additional complaints Reports no additional complaints Musc Reports no additional complaints and Denies abnormal gait Skin/Breast Reports system reviewed and no additional complaints, except as documented Neuro Denies abnormal gait, Denies dizziness and Denies headache(s) Psych Reports no additional complaints Physical exam (Primary Care) Vital Signs: Last Vital Signs Temp 97.3 F 09/01/24 13:58 Pulse 68 09/01/24 13:58 BP 120/70 09/01/24 13:58 Pulse Ox 96 09/01/24 13:58 Oxygen Delivery Method Room Air 09/01/24 13:58 BMI result Body Mass Index 25.4 Tobacco/Smoking Status: Tobacco use Status Tobacco use date assessed 09/01/24 09/01/24 14:01 Patient Tobacco Use Status Never used Tobacco 09/01/24 14:05 Tobacco use type Cigarette 09/01/24 14:05 e-Cigarette/Vaping Use Never Used 09/01/24 14:05 Thrive Assessment: Date of Thrive Assessment Date Thrive assessed 06/03/24 09/01/24 14:01 Const General: cooperative, healthy appearing, comfortable and no acute distress Orientation/consciousness: patient oriented x3 HENMT Head: Yes normocephalic Ears: hearing grossly normal bilaterally General nose exam: Normal external nose present Eyes General: appearance normal, both eyes and all related structures Conjunctivae: conjunctivae normal Neck Neck: Yes full ROM and Yes no lymphadenopathy Resp Effort & Inspection: normal respiratory effort Auscultation: clear to auscultation bilaterally, no crackles, no rales, no rhonchi and no wheezes Cardio Rate: regular rate Rhythm: regular rhythm Back/Spine/Pelvis Other: No tenderness to palpation over lumbar spine or sacrum. No rashes or lesions Skin General skin exam: no rashes or lesions noted Neuro General: patient oriented x3 Gait exam (Neuro): Normal gait present Extrem General: Yes normal to inspection, Yes full ROM and No edema Psych Affect: normal affect Attitude: cooperative Insight: Good insight present (Psych) Judgement: Good judgement present (Psych) Coding Level of Care Code Est Pt Level 3 (23299) Diagnoses GERD (gastroesophageal reflux disease) K21.9 Polymyalgia rheumatica M35.3 Hypertension I10 Hypercholesterolemia E78.00 Atrial fibrillation I48.91 Lymphocytic colitis K52.832 Sacral pain M53.3 Assessment & Plan Assessment & Plan (1) GERD (gastroesophageal reflux disease): Code(s): K21.9 - Gastro-esophageal reflux disease without esophagitis Category: Medical Plan: Avoid trigger foods such as citrus, tomato products, soda, caffeine, spicy foods and other foods that may be irritating to your stomach. Avoid laying flat 3-4 hours after eating and elevate the head of the bed 30 degrees to prevent acid from moving into the esophagus. Continue on famotidine. I did reach out to the GI office in regards to barium swallow and EGD scheduling. (2) Polymyalgia rheumatica: Code(s): M35.3 - Polymyalgia rheumatica Category: Medical Plan: Currently following with arthritis treatment center was previously on prednisone but is no longer and treatment for the polymyalgia. Continue to follow up with Rheumatology (3) Hypertension: Code(s): I10 - Essential (primary) hypertension Category: Medical Plan: Continue on current blood pressure medication. Avoid salt intake and encourage healthy diet and regular exercise. (4) Hypercholesterolemia: Code(s): E78.00 - Pure hypercholesterolemia, unspecified Category: Medical Plan: Avoid foods that are high in cholesterol such as red meat, fried foods, eggs and baked goods. Triglyceride goal of less than 150 and LDL goal of less than 70. Continue on atorvastatin 40 (5) Atrial fibrillation: Code(s): I48.91 - Unspecified atrial fibrillation Category: Medical Plan: Currently on anticoagulation with Xarelto and on rate control with metoprolol. [place] to [place] [facility] [place] (6) Lymphocytic colitis: Code(s): K52.832 - Lymphocytic colitis Category: Medical Plan: Currently following with Gastroenterology and scheduled to have upper endoscopy with colonoscopy, I reached out to the GI office for clarification on scheduling. (7) Sacral pain: Code(s): M53.3 - Sacrococcygeal disorders, not elsewhere classified Category: Medical Plan: No tenderness to palpation on exam however patient states the pain we will fluctuate throughout the day and has been pain-free for the last several days. Advised to monitor symptoms and reach out to the office if she desires and x-ray for further evaluation Plan This note was constructed using voice recognition software. While every effort has been made to ensure accuracy and chief embalmer, still areas may have been included sometimes these areas may affect the content or meeting of the given symptoms. Total time spent caring for the patient today was 20 minutes. This includes time spent before the visit reviewing the chart, time spent during the visit, and time spent after the visit and documentation. Patient was informed and verbally consented to the use of an ambient scribe for clinic note documentation during this visit.
[2024-09-01 13:58] VITALS: BP 120/70; PULSE 68; TEMP 36.3; O2SAT 96; BMI 25.4
== END 2024-09-01 14:32 | disposition home or self-care (01) ==
LOC: HO.HMCH 13:50
PROVIDERS: PCP Internal Medicine
DX: K21.9 Gastro-esophageal reflux disease without esophagitis (principal); M35.3 Polymyalgia rheumatica; I48.91 Unspecified atrial fibrillation; I10 Essential (primary) hypertension; E78.00 Pure hypercholesterolemia, unspecified; K52.832 Lymphocytic colitis; M53.3 Sacrococcygeal disorders, not elsewhere classified

== ENCOUNTER → 2024-09-01 13:50 | Outpatient (BNVA) | payer MEDICARE, OTHER, SELFPAY | PROVIDERS: PCP Internal Medicine | DX: K21.9 Gastro-esophageal reflux disease without esophagitis (principal); M35.3 Polymyalgia rheumatica; I10 Essential (primary) hypertension; I48.91 Unspecified atrial fibrillation; K52.832 Lymphocytic colitis; E78.00 Pure hypercholesterolemia, unspecified; M53.3 Sacrococcygeal disorders, not elsewhere classified | CPT/HCPCS: 99212 ==

== ENCOUNTER 2024-09-17 10:31 | Outpatient (AMB) | payer MEDICARE, OTHER, SELFPAY ==
--- NOTE | 2024-09-17 11:06 | AM.OFFWIN_ITS ---
Intake Vital Signs 09/17/24 11:09 Weight 151 lb BP 130/78 Blood Pressure Location Rt brachial Position Sitting Pulse 51 Pulse Source Pulse Oximeter Pulse Oximetry (%) 98 Oxygen Delivery Method Room Air Intake Visit Reasons: EP Bruise on RT leg Intake Note: Patient here for small cut on right leg after hitting herself lightly with a vaccum handle the other day. Patient Tobacco Use Status: Never used Tobacco Allergies No Known Allergies Allergy (Verified 09/17/24 11:08) Do you need a note to return to daycare/school/sports/work: No HPI HPI Comments History of Present Illness Details History of Present Illness - The patient is an 84-year-old female p resenting with suspicion of an abscess on the right leg. - She reports sustaining a contusion on her leg approximately 10 days ago while on Xarelto, resulting in a persistent bruise. - Tenderness, redness, and warmth have b een noted, with the patient describing a stinging sensation and possible abscess formation. - Over the last few days, tenderness has decreased, yet concern for infection remains. 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 Physical Exam General: Cooperative, healthy appearing, comfortable, no acute distress and well developed Orientation: Patient oriented x3 Limitations: No limitations Head: Normal to inspection Ears: Hearing grossly normal bilaterally Nose: Normal External nose present Face and sinus: Normal facial exam Eyes: Appearance normal, both eyes and all related structures Neck: Normal visual inspection and Yes full ROM Respiratory: Normal respiratory effort and able to speak in complete sentences. Skin: as below, otherwise no rashes noted Neuro: Patient oriented x3 Extremities: RLE mid roman has scab with 1cm indurated area underneath, TTP, no warmth or drainage, erythema is present, several areas of ecchymosis noted on the LE. [facility] Medical History Annual physical exam Surgical History Hx of neck surgery History of esophagogastroduodenoscopy (EGD) H/O colonoscopy History of total left knee replacement H/O right knee surgery History of cataract surgery Family History (Updated 09/01/24 @ 14:05 by HAROLDO Manjarrez) Father Prostate cancer Mother Hypertension Heart attack Brother Heart attack Other Substance use disorder Social History (Updated 09/01/24 @ 14:05 by HAROLDO Manjarrez) Housing: Apartment Alcohol intake: current Alcohol intake frequency: a few times a week Patient Tobacco Use Status: Never used Tobacco Tobacco use type: Cigarette e-Cigarette/Vaping Use: Never Used Second Hand Smoke Exposure: No service: No Current occupational status: retired Cognitive needs: No Hearing needs: No Vision needs: No Review of Systems Const All systems reviewed & are unremarkable except as noted in HPI and below Physical Exam Vital Signs: Last Vital Signs Pulse 51 09/17/24 11:09 BP 130/78 09/17/24 11:09 Pulse Ox 98 09/17/24 11:09 Oxygen Delivery Method Room Air 09/17/24 11:09 Assessment & Plan Assessment & Plan (1) Cellulitis: Code(s): L03.90 - Cellulitis, unspecified Qualifiers: Site of cellulitis: extremity Site of cellulitis of extremity: lower extremity Laterality: right Qualified Code(s): L03.115 - Cellulitis of right lower limb Plan: Keflex will be administered every six hours for seven days to manage the presumed infection at the contusion site, with plans for reevaluation should symptoms worsen. Owing to the patient's MRSA carrier status, the addition of doxycycline may be necessary should improvement not be observed. Pateint was encouraged to let us know how treatment goes, we will add doxycycline if we need to. Vaseline is advised to expedite healing of the affected area, and the potential benefits of heat application to alleviate bruising were also discussed. Patient was informed and verbally consented to the use of an ambient scribe for clinic note documentation during this visit. Medications: New cephalexin 500 mg PO Q6H 28 caps 0RF Coding Level of Care Code Est Pt Level 3 (83841) Diagnoses Cellulitis of right lower extremity L03.115 Site of cellulitis: extremity Site of cellulitis of extremity: lower extremity Laterality: right
[2024-09-17 11:09] VITALS: BP 130/78; PULSE 51; O2SAT 98
== END 2024-09-17 11:50 | disposition home or self-care (01) ==
PROVIDERS: PCP Internal Medicine; Visit Provider Physician Assistant
DX: L03.115 Cellulitis of right lower limb (principal)

== ENCOUNTER → 2024-09-17 10:31 | Outpatient (BNVA) | payer MEDICARE, OTHER, SELFPAY | PROVIDERS: PCP Internal Medicine; Visit Provider Physician Assistant | DX: L03.115 Cellulitis of right lower limb (principal) | CPT/HCPCS: 99212 ==

== ENCOUNTER 2024-09-21 12:15 | Outpatient (AMB) | payer MEDICARE, OTHER, SELFPAY ==
[2024-09-21 12:59] VITALS: BP 128/80; PULSE 76; O2SAT 97; BMI 25.6
--- NOTE | 2024-09-21 12:59 | MHC.OFFWIV ---
Intake Vital Signs 09/21/24 12:59 Height 5 ft 4 in Weight 149 lb BMI 25.6 BP 128/80 Blood Pressure Location Lt brachial Position Sitting Pulse 76 Pulse Source Pulse Oximeter Pulse Oximetry (%) 97 Oxygen Delivery Method Room Air Intake Visit Reasons: EP Bruise on RT leg was seen here recently Patient Tobacco Use Status: Never used Tobacco Allergies No Known Allergies Allergy (Verified 09/21/24 13:11) Do you need a note to return to daycare/school/sports/work: No HPI HPI Comments History of Present Illness Details History of Present Illness - The patient is an 84-year-old female presenting with adverse drug reactions and cellulutis management. - The patient has experienced diarrhea and headaches following initiation of an Keflex 4 days ago, with symptoms persisting until yesterday - Previous use of Keflex for OM did not produce similar adverse effects. Current antibiotics have led to distressing gastrointestinal symptoms, prompting a request for alternative medications. - patient patient states that the cellulitis is much improved and seems to be resolving but she can not tolerate the side effects of the antibiotic. Physical Exam General: Cooperative, healthy appearing, comfortable, no acute distress and well developed Orientation: Patient oriented x3 Limitations: No limitations Head: Normal to inspection Ears: Hearing grossly normal bilaterally Nose: Normal External nose present Face and sinus: Normal facial exam Eyes: Appearance normal, both eyes and all related structures Neck: Normal visual inspection and Yes full ROM Respiratory: Normal respiratory effort and able to speak in complete sentences. Skin: Right lower extremity, anterior mid roman has a 1 cm area of erythema, slightly tender to palpation, soft Neuro: Patient oriented x3 Extremities: Normal to inspection [facility] Medical History Annual physical exam Surgical History Hx of neck surgery History of esophagogastroduodenoscopy (EGD) H/O colonoscopy History of total left knee replacement H/O right knee surgery History of cataract surgery Family History (Updated 09/01/24 @ 14:05 by HAROLDO Manjarrez) Father Prostate cancer Mother Hypertension Heart attack Brother Heart attack Other Substance use disorder Social History (Updated 09/01/24 @ 14:05 by Shimarlia Kwade, RMA) Housing: Apartment Alcohol intake: current Alcohol intake frequency: a few times a week Patient Tobacco Use Status: Never used Tobacco Tobacco use type: Cigarette e-Cigarette/Vaping Use: Never Used Second Hand Smoke Exposure: No service: No Current occupational status: retired Cognitive needs: No Hearing needs: No Vision needs: No Review of Systems Const All systems reviewed & are unremarkable except as noted in HPI and below Physical Exam Vital Signs: Last Vital Signs Pulse 76 09/21/24 12:59 BP 128/80 09/21/24 12:59 Pulse Ox 97 09/21/24 12:59 Oxygen Delivery Method Room Air 09/21/24 12:59 BMI result Body Mass Index 25.6 Assessment & Plan Assessment & Plan (1) Cellulitis: Code(s): L03.90 - Cellulitis, unspecified Qualifiers: Laterality: right Site of cellulitis: extremity Site of cellulitis of extremity: lower extremity Qualified Code(s): L03.115 - Cellulitis of right lower limb Plan: Cellulitis looks much improved compared to 4 days ago, at our initial visit. For the management of cellulitis and adverse drug reactions after taking the medication for 3.5 days, I will transition the patient to doxycycline, an antibiotic with a preferable side effect profile for this case. The plan is for a three-day course with twice-daily dosing, providing effective treatment while mitigating previous adverse effects. Prescription fulfillment is arranged at [facility] on [facility] for patient convenience. Patient was informed and verbally consented to the use of an ambient scribe for clinic note documentation during this visit. Medications: New doxycycline hyclate 100 mg PO BID 6 tabs 0RF Coding Level of Care Code Est Pt Level 3 (34720) Diagnoses Cellulitis of right lower extremity L03.115 Laterality: right Site of cellulitis: extremity Site of cellulitis of extremity: lower extremity
== END 2024-09-21 13:55 | disposition home or self-care (01) ==
PROVIDERS: PCP Internal Medicine; Visit Provider Physician Assistant
DX: L03.115 Cellulitis of right lower limb (principal)

== ENCOUNTER → 2024-09-21 12:15 | Outpatient (BNVA) | payer MEDICARE, OTHER, SELFPAY | PROVIDERS: PCP Internal Medicine; Visit Provider Physician Assistant | DX: L03.115 Cellulitis of right lower limb (principal) | CPT/HCPCS: 99212 ==

== ENCOUNTER 2024-10-31 09:24 | Emergency (ER) | payer MEDICARE, OTHER, SELFPAY ==
--- NOTE | ~2024-10-31 | XR_ITS ---
CLINICAL HISTORY: right great toe pain 2 views right great toe Comparison: None Findings: No fractures or subluxations or dislocations. Hammertoe 2nd digit Mild joint space narrowing of the interphalangeal joints No marginal erosions or overhanging osteophytes. Suspect bipartite medial sesamoid bone. This is developmental. Correlate with palpation. No radiopaque foreign body. Osteopenia. Normal soft tissues. Impression: 1. No acute osseous abnormalities. Suspect a bipartite medial sesamoid bone 1st metatarsal head can be correlated with palpation This document has been electronically signed by: Leo Franco MD on 10/31/2024 10:36:40
--- NOTE | ~2024-10-31 | XR_ITS ---
CLINICAL HISTORY: right foot ink 3 views right foot Comparison: None Findings: No fractures, subluxations or dislocations. Hammertoe 2nd digit No periostitis or bony destruction. Mild joint space narrowing of the interphalangeal joints. No marginal erosions or overhanging osteophytes Calcaneus and subtalar joint intact. No significant arthritic change. No plantar calcaneal spur. Osteopenia. Normal pre-Achilles fat pad. No radiopaque foreign body. Impression: 1. Osteopenia. Non erosive osteoarthritic changes. This document has been electronically signed by: Leo Franco MD on 10/31/2024 10:36:05
[2024-10-31 09:49] VITALS: BP 124/62; PULSE 62; RESP 18; TEMP 36.2; O2SAT 97; BMI 27.5
--- NOTE | 2024-10-31 12:05 | ED_ITS ---
HPI - Extremity Injury (Lower) General Chief Complaint: Extremity Injury, Lower Stated Complaint: r foot inj Time Seen by Provider: 10/31/24 11:56 Source: patient, RN notes reviewed and old records reviewed Mode of arrival: ambulatory History of Present Illness ED Provider: Jaleesa Hartmann PA-C HPI Narrative: 84-year-old female with a past medical history HLD, AFib, HTN, polymyalgia rheumatica, GERD, presenting to the ED complaining of right foot/ankle pain s/p rolling on uneven surface yesterday. Reports difficulty with weight- bearing/ambulation secondary to pain. Denies fall all the way to ground head trauma LOC, numbness, tingling Related Data Home Medications ?Medication ?Instructions ?Recorded ?Confirmed atorvastatin 40 mg tablet 40 mg PO DAILY 07/19/23 06/03/24 lisinopril 20 mg tablet 20 mg PO BID 07/19/23 06/03/24 metoprolol succinate 25 mg 25 mg PO DAILY 07/19/23 06/03/24 tablet,extended release 24 hr rivaroxaban 20 mg tablet (Xarelto) 20 mg PO DAILY 07/19/23 06/03/24 amlodipine 5 mg tablet 5 mg PO DAILY 03/10/24 06/03/24 B complex with vitamin cap PO 04/02/24 06/03/24 K-sueoprwsj-mrwz capsule cholecalciferol (vitamin D3) 50 50 mcg PO DAILY 04/02/24 06/03/24 mcg (2,000 unit) capsule collagen protein powder PO DAILY 04/02/24 06/03/24 bftdymkqjlre-gmuipdya-fzcqmi tablet 1 tab PO DAILY 04/02/24 06/03/24 Previous Rx's ?Medication ?Instructions ?Recorded sertraline 25 mg tablet 25 mg PO DAILY #90 tabs 05/13/24 famotidine 40 mg tablet 40 mg PO DAILY #30 tabs 06/03/24 budesonide 3 mg 9 mg (3 x 3 mg) PO DAILY #90 ea 06/04/24 capsule,delayed,extended release cephalexin 500 mg capsule 500 mg PO Q6H #28 caps 09/17/24 doxycycline hyclate 100 mg tablet 100 mg PO BID #6 tabs 09/21/24 sodium,potassium,mag sulfates 17.5 480 ml PO .COMPLEX #354 mL 10/02/24 gram-3.13 gram-1.6 gram oral soln (Suprep Bowel Prep Kit) Allergies Allergy/AdvReac Type Severity Reaction Status Date / Time No Known Allergies Allergy Verified 10/31/24 09:51 Review of Systems Review of Systems: Yes all other systems are reviewed and are negative Constitutional: Constitutional: Reports as per [facility] Past Medical History Attestation statement: The following information was validated with the patient. Source: old records reviewed Medical History Annual physical exam Surgical History Hx of neck surgery History of esophagogastroduodenoscopy (EGD) H/O colonoscopy History of total left knee replacement H/O right knee surgery History of cataract surgery Family History Family History Father Prostate cancer Mother Hypertension Heart attack Brother Heart attack Other Substance use disorder Social History Social History Housing: Apartment Alcohol intake: current Alcohol intake frequency: a few times a week Patient Tobacco Use Status: Never used Tobacco Tobacco use type: Cigarette e-Cigarette/Vaping Use: Never Used Second Hand Smoke Exposure: No service: No Current occupational status: retired Cognitive needs: No Hearing needs: No Vision needs: No Physical Exam Vital Signs: Vital Signs: Last Vital Signs Temp 97.2 F 10/31/24 09:49 Pulse 62 10/31/24 09:49 Resp 18 10/31/24 09:49 BP 124/62 10/31/24 09:49 Pulse Ox 97 10/31/24 09:49 O2 Del Method Room Air 10/31/24 09:49 BMI result Body Mass Index 27.5 Const: General: cooperative, healthy appearing and no acute distress Orientation/consciousness: patient oriented x3 Limitations: no limitations HEENT: Head: Yes normal to inspection and Yes atraumatic Ears: hearing larry ssly normal bilaterally General nose exam: Normal external nose present Face and sinus: Yes normal facial exam Eyes: General: appearance normal, both eyes and all related structures EOM: EOMs intact bilaterally Neck: Neck: Yes normal visual inspection and Yes no meningeal signs Resp: Effort & Inspection: normal respiratory effort and no respiratory distre ss Cardio: Rate: regular rate Skin: Rashes: no rashes Wounds: no wounds Neuro: General: patient oriented x3, tone normal and no meningeal signs Cranial nerves: Yes CN's II-XII intact bilaterally Gait exam (Neuro): Normal gait present Extrem: Other: Right foot/ankle without noted deformity. Mild erythema to proximal 1st metatarsal. +ttp to 1st metatarsal and lateral aspect of foot. No open wounds/ecchymosis or erythema. No crepitus. Ankle nontender. No knee tenderness. No pitting edema. Neurovascularly intact. Course Course Course Narrative: XR toe RT min 2V Impression: 1. No acute osseous abnormalities. Suspect a bipartite medial sesamoid bone 1st metatarsal head can be correlated with palpation XR foot RT 2V Impression: 1. Osteopenia. Non erosive osteoarthritic changes. > walking boot and crutches applied Results discussed with patient including worrisome signs and symptoms and strict return precautions, and when to return to the emergency department. They verbalized understanding and feel safe for discharge at this time. Medical Decision Making Medical Decision Making MDM Narrative: 84-year-old female with a past medical history HLD, AFib, HTN, polymyalgia rheumatica, GERD, presenting to the ED complaining of right foot/ankle pain s/p rolling on uneven surface yesterday. On exam vital signs stable, NAD, nontoxic appearing physical exam as noted above. Concern for fracture vs sprain. Low suspicion for septic joint/arthritis or DVT Plan: X-ray Please refer to course for remaining clinical decision making, interpretation of labs/imaging results, and discussions with consultants and/or family members. Differential Diagnosis Differential Diagnoses: The differential diagnosis associated with the presentation includes As above Independent Interpretation I performed an independent interpretation of an: Plain X-Ray Radiology Impression Discussion of test interpretation with radiology: I have reviewed the radiologist's reading. External Record Review External record reviewed: Inpatient record, Office record, Outpatient record, Prior outpatient labs, Prior outpatient radiology, Primary care record and Outside ED record Tests considered The following testing was considered but not selected: As above Prescription Management I considered prescription management with: Pain Medication Chronic Conditions Patient?s care impacted by: Other Social Determinants Patient?s care significantly limited by Social Determinants of Health including: Other Social Determinant of Health Procedures Orthopedic Splinting/Casting Injury #1: Side: right Lower Extremity Injury Location: foot Lower Extremity Immobilizer: boot orthosis Other Orthopedic Equipment: crutches Discharge Plan Discharge Clinical Impression: Foot sprain Patient Disposition: Home, Self-Care Instructions: Foot Sprain (ED), Walking Boot (ED) Additional Instructions: Your x-ray does not show any acute fractures. Due to have osteoarthritic changes Use walking boot as needed for comfort, bear weight as tolerated Take walking with off to sleep and shower Use crutches as needed Ice and elevate Take Tylenol and ibuprofen for pain Follow up with Orthopedics/Podiatry If symptoms persist or worsen return to the ED Prescriptions: No Action sertraline 25 mg tablet 25 mg PO DAILY Qty: 90 2RF budesonide 3 mg capsule,delayed,extend.release 9 mg PO DAILY Qty: 90 6RF sodium,potassium,mag sulfates [Suprep Bowel Prep Kit] 17.5-3.13-1.6 gram recon soln 480 ml PO .COMPLEX Qty: 354 0RF Rx Instructions: 480 mL orally; FOR COLONOSCOPY PREP Xarelto 20 mg tablet 20 mg PO DAILY lisinopril 20 mg tablet 20 mg PO BID atorvastatin 40 mg tablet 40 mg PO DAILY metoprolol succinate 25 mg tablet extended release 24 hr 25 mg PO DAILY dzhjdsnudnag-yqovmktr-wftlev Tablet 1 tab PO DAILY cholecalciferol (vitamin D3) 50 mcg (2,000 unit) capsule 50 mcg PO DAILY B complex with M-iutoyydti-Sx Capsule PO collagen protein powder PO DAILY famotidine 40 mg tablet 40 mg PO DAILY Qty: 30 6RF amlodipine 5 mg tablet 5 mg PO DAILY cephalexin 500 mg capsule 500 mg PO Q6H Qty: 28 0RF doxycycline hyclate 100 mg tablet 100 mg PO BID Qty: 6 0RF Referrals: [facility] [Provider Group] - 1 week Print Language: Bulgarian
[2024-10-31 13:15] VITALS: BP 124/62; PULSE 62; RESP 18; TEMP 36.2; O2SAT 97
== END 2024-10-31 13:15 | disposition home or self-care (01) ==
LOC: HO.ED 13:11
PROVIDERS: Emergency Provider Emergency Medicine; PCP Internal Medicine
DX: S93.601A Unspecified sprain of right foot, initial encounter (principal); X58.XXXA Exposure to other specified factors, initial encounter; Y93.9 Activity, unspecified; Y92.9 Unspecified place or not applicable; Y99.9 Unspecified external cause status; M25.571 Pain in right ankle and joints of right foot; M79.674 Pain in right toe(s)
CPT/HCPCS: 73620; 73660; 99282; 99283

== ENCOUNTER 2024-11-04 09:27 | Day surgery (SDC) | payer MEDICARE, OTHER, SELFPAY ==
[2024-11-02 15:52] VITALS: BMI 24.9
--- NOTE | 2024-11-03 11:59 | HO.ANESPROP2 ---
HPI - Anesthesia Eval Consult details Narrative: 84yo F for Upper Endoscopy and Colonoscopy Afib: xarelto PMFSH Active Problems Active Problems: All Active Problems Sacral pain (Acute) Dermatitis (Acute) Cellulitis (Acute) Annual wellness visit (Acute) Lymphocytic colitis (Acute) Nausea (Acute) Diarrhea (Acute) Left knee pain (Acute) GERD (gastroesophageal reflux disease) (Acute) Barretts esophagus (Acute) [place] coronary artery calcium score between 200 and 399 (Acute) Polymyalgia rheumatica (Acute) Hypertension (Acute) Osteopenia (Acute) Hypercholesterolemia (Acute) Atrial fibrillation (Acute) Past Medical History Medical History A-fib HLD (hyperlipidemia) HTN (hypertension) Felipe's esophagus GERD (gastroesophageal reflux disease) History of foot sprain (10/31/24) Annual physical exam Family History Family History Father Prostate cancer Mother Hypertension Heart attack Brother Heart attack Other Substance use disorder Surgical History Surgical History Hx of neck surgery History of esophagogastroduodenoscopy (EGD) H/O colonoscopy History of total left knee replacement H/O right knee surgery History of cataract surgery Social History Social History Household Members Other:: lives alone Housing: Apartment Are you a primary rn patient care to a significant other at home: No Do you presently have visiting nurse or other home services: No Alcohol intake: current Alcohol intake frequency: a few times a week Patient Tobacco Use Status: Never used Tobacco Tobacco use type: Cigarette e-Cigarette/Vaping Use: Never Used Second Hand Smoke Exposure: No service: No Current occupational status: retired Cognitive needs: No Hearing needs: No Vision needs: No Meds Allergies Allergy/AdvReac Type Severity Reaction Status Date / Time No Known Allergies Allergy Verified 10/31/24 09:51 Home Medications ?Medication ?Instructions ?Recorded ?Confirmed ?Last Taken ?Type atorvastatin 40 mg tablet 40 mg PO DAILY 07/19/23 06/03/24 Unknown History lisinopril 20 mg tablet 20 mg PO BID 07/19/23 06/03/24 Unknown History metoprolol succinate 25 mg 25 mg PO DAILY 07/19/23 06/03/24 11/04/24 07:00 History tablet,extended release 24 hr rivaroxaban 20 mg tablet (Xarelto) 20 mg PO DAILY 07/19/23 06/03/24 11/01/24 History amlodipine 5 mg tablet 5 mg PO DAILY 03/10/24 06/03/24 Unknown History B complex with vitamin cap PO 04/02/24 06/03/24 Unknown History A-xpnjaosdi-bxyt capsule cholecalciferol (vitamin D3) 50 50 mcg PO DAILY 04/02/24 06/03/24 Unknown History mcg (2,000 unit) capsule collagen protein powder PO DAILY 04/02/24 06/03/24 Unknown History sljfvtaokspq-taxxulyx-dxtjox tablet 1 tab PO DAILY 04/02/24 06/03/24 Unknown History Exam Height,Weight and Vital Signs: Height 5 ft 4 in Weight 65.771 kg Assessment and Plan Assessment Anesthesia Assessment: Chart Reviewed
[2024-11-04 11:12] VITALS: BMI 25.2
[2024-11-04 11:28] VITALS: BP 142/58; PULSE 68; RESP 20; TEMP 36.2; O2SAT 96
[2024-11-04] MEDS: Lactated Ringers 1,000 ML 100 ML IVCONT (11:43)
--- NOTE | 2024-11-04 12:39 | MHC.SHP ---
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 Details of Present Illness: abn bowel habit Relevant Family History (Specify if Yes): No Relevant Social History: None Present Medications: see Short Stay Collaborative assessment Medical History: Significant History (a-fib, PMR, microscopic colitis, HTN) History of Previous Operations: Relevant previous surgery/procedure and date(s) (Hx of neck surgery History of esophagogastroduodenoscopy (EGD) H/O colonoscopy History of total left knee replacement H/O right knee surgery History of cataract surgery) Allergies: Allergies Allergy/AdvReac Type Severity Reaction Status Date / Time No Known Allergies Allergy Verified 10/31/24 09:51 Review of Systems Sugical H&P ROS: Negative: Constitution, Cardiovascular, Respiratory, Neurological, Psychiatric, Hem-Onc, Allergic/Immunologic, Gastrointestinal, Genitourinary, Musculoskeletal, Integumentary, Endocrine and Eyes/Ears/Nose/Throat Exam Surgical H&P Exam: Normal: HEENT, Normal: Heart, Normal: Lungs, Normal: Extremities, Normal: Abdomen, Normal: Skin and Normal: Neurological Plan Diagnosis/Plan: Unchanged I have reviewed the history and physical and performed a pertinent physical examination on my patient. No changes have occurred unless specified. Time Spent With Patient Time: Total time managing care of this patient today ____ minutes.
--- NOTE | 2024-11-04 13:02 | HO.OPN-COLON ---
Colonoscopy Operative Note Operative Note Date of Service: 11/04/24 Narrative: Operative Information Procedure Description: EGD, Colonoscopy Indication: abn bowel habits Anesthesia: MAC FLEXIBLE TRANSORAL UPPER GASTROINTESTINAL ENDOSCOPY AND COLONOSCOPY PROCEDURE NOTE UPPER ENDOSCOPY Consent: Indications for the procedure and potential complications of bleeding, perforation, reaction to medications and missed diagnosis were discussed with the patient and informed consent was obtained. Instrument: Olympus GIF H 190 J mid size upper endoscope Monitoring: Vital signs and clinical assessment, continuous EKG monitoring, Pulse oximetry, Carbon Dioxide monitoring and blood pressure monitoring were done throughout the procedure. Procedure: The patient was placed in the left lateral decubitis position and pre-procedure medications were administered and a bite block was placed. The endoscope was inserted into the mouth and advanced under direct vision to the third part of duodenum. A careful inspection was made as the upper endoscope was withdrawn including a retroflexed examination of the proximal stomach; Findings and interventions are described below. Findings: Larynx:normal Esophagus: GE junction at 30 cm, diaphragm hiatus at 34 cm, consistent with 4 cm fixed hiatal hernia, with mild esophagitis and schatzki ring with short segment of possible barretts esophagus --esophageal nodule noted at 20 cm, bx taken Stomach: mild gastritis. Biopsies were obtained. Grade 2 flap valve on retroflexed examination of the cardia. Duodenum: Normal bulb and descending duodenum, bx taken Intervention: Biopsies as noted above, COLONOSCOPY Instrument: Olympus variable stiffness pediatric scope 190L Colonoscopy Monitoring: Vital signs and clinical assessment, continuous EKG monitoring, Pulse oximetry, Carbon Dioxide monitoring and blood pressure monitoring were done throughout the procedure. Colon withdrawal time was 10 minutes. Procedure: The patient was placed in the left lateral decubitis position and pre-procedure medications were administered. After a digital rectal examination of the ano-rectum, the video colonoscope was inserted into the rectum and advanced through the colon to the cecum/TI. The colonoscope was slowly withdrawn in a retrograde panoramic fashion and the colon mucosa was carefully examined including a retroflexed view of the rectum. Findings and interventions are described below. Procedure Difficulty:moderate Findings: Terminal Ileum-normal, bx taken random colon bx taken Cecum: x 2 flat polyps 6-8 raised with eleview, removed with cold snare,, with one clip applied to on area due to oozing. Ascending Colon: x 1 flat polyp 6-7 mm lifted with eleview and removed with cold snare, x 1 sessile polyp 4-5 mm removed with cold forceps Transverse Colon -normal Descending Colon:normal Sigmoid Colon: moderate diverticulosis Rectum: Retroflexion with small internal hemorrhoids, grade I Anorectum - normal Colon preparation: [place] Bowel Preparation Scale Right colon; 2 Transverse colon: 2 Left colon; 2 (0 = Unprepared colon segment with mucosa not seen due to solid stool that cannot be cleared. 1 = Portion of mucosa of the colon segment seen, but other areas of the colon segment not well seen due to staining, residual stool and/or opaque liquid. 2 = Minor amount of residual staining, small fragments of stool and/or opaque liquid, but mucosa of colon segment seen well. 3 = Entire mucosa of colon segment seen well with no residual staining, small fragments of stool or opaque liquid) Impression and Post Procedure Diagnosis: Endoscopy Findings: hiatal hernia schatzki ring esophagitis, mild small segment barretts Colonoscopy Findings: diverticulosis colon polyps internal hemorrhoids Plan: Await Pathology results Repeat Colonoscopy in 3 years if health allows or earlier if clinically indicated High fiber diet leaflet avoid straining at stool, epsom salts and sitz bath, anusol supps or cream restart rivaroxiban 11/06/24 Above findings were reviewed with the patient and relevant handouts were provided if indicated.
[2024-11-04 13:36] VITALS: BP 102/54; PULSE 92; RESP 16; TEMP 37.1; O2SAT 94
[2024-11-04 13:51] VITALS: BP 125/42; PULSE 63; RESP 16; TEMP 36.6; O2SAT 95
== END 2024-11-04 14:19 | disposition home or self-care (01) ==
PROVIDERS: PCP Internal Medicine; Visit Provider Internal Medicine Gastroenterology
PROC: (CPT 45385; principal; 2024-11-04 11:50)
DX: R19.4 Change in bowel habit (principal); R19.7 Diarrhea, unspecified; K52.832 Lymphocytic colitis; D12.0 Benign neoplasm of cecum; D12.2 Benign neoplasm of ascending colon; K57.30 Diverticulosis of large intestine without perforation or abscess without bleeding; K64.0 First degree hemorrhoids; K22.70 Barrett's esophagus without dysplasia; K21.9 Gastro-esophageal reflux disease without esophagitis; K20.80 Other esophagitis without bleeding; K22.2 Esophageal obstruction; K22.81 Esophageal polyp; K29.50 Unspecified chronic gastritis without bleeding; K44.9 Diaphragmatic hernia without obstruction or gangrene; I10 Essential (primary) hypertension; E78.5 Hyperlipidemia, unspecified; I48.91 Unspecified atrial fibrillation; Z79.01 Long term (current) use of anticoagulants; Z79.899 Other long term (current) drug therapy; Z96.652 Presence of left artificial knee joint; Z98.890 Other specified postprocedural states
CPT/HCPCS: 45385; 45380; 45381; 43239; 88305; 88313; 88342; J2003; J2704

== ENCOUNTER → 2024-11-04 09:27 | Outpatient (BNV) | payer MEDICARE, OTHER, SELFPAY | PROVIDERS: PCP Internal Medicine; Visit Provider Internal Medicine Gastroenterology | DX: R19.4 Change in bowel habit (principal); K20.90 Esophagitis, unspecified without bleeding; K22.2 Esophageal obstruction; K22.81 Esophageal polyp; K29.70 Gastritis, unspecified, without bleeding; D12.0 Benign neoplasm of cecum; D12.2 Benign neoplasm of ascending colon; K57.30 Diverticulosis of large intestine without perforation or abscess without bleeding; K64.0 First degree hemorrhoids | CPT/HCPCS: 43239; 45380; 45381; 45385 ==

== ENCOUNTER 2024-12-10 11:46 | Outpatient (AMB) | payer MEDICARE, OTHER, SELFPAY ==
[2024-12-10 12:18] VITALS: BP 128/64; PULSE 54; TEMP 36.6; O2SAT 98; BMI 26.3
--- NOTE | 2024-12-10 12:18 | AM.OFFWIN_ITS ---
Intake Vital Signs 12/10/24 12:18 Height 5 ft 4 in Weight 153 lb BMI 26.3 BP 128/64 Blood Pressure Location Rt brachial Position Sitting Pulse 54 Pulse Source Pulse Oximeter Temp 97.8 F Temp Source Oral Pulse Oximetry (%) 98 Oxygen Delivery Method Room Air Intake Visit Reasons: EP [place] eye? Intake Note: presents with right eye redness and gritty feeling for a couple days Patient Tobacco Use Status: Never used Tobacco Allergies No Known Allergies Allergy (Verified 12/10/24 12:18) Do you need a note to return to daycare/school/sports/work: No HPI HPI Comments History of Present Illness Details Pt is a 84-year-old female complaining of what she thinks is pink eye in her right eye. She tells me she always has bloodshot eyes but yesterday she started with some itchiness in her right eye and it has been leaking fluid and it was crusted shut this morning. She denies any changes in her vision and states it does not feel like there is anything in her eye and as far as she knows she did not get anything in her eye. Her left eye is bloodshot but it has not been leaking any fluid. She states that it is not painful. [facility] Medical History (Updated 12/10/24 @ 12:33 by Adelita Hernández PA-C) A-fib HLD (hyperlipidemia) HTN (hypertension) Felipe's esophagus GERD (gastroesophageal reflux disease) History of foot sprain (10/31/24) Annual physical exam Surgical History Hx of neck surgery History of esophagogastroduodenoscopy (EGD) H/O colonoscopy History of total left knee replacement H/O right knee surgery History of cataract surgery Family History Father Prostate cancer Mother Hypertension Heart attack Brother Heart attack Other Substance use disorder Social History Household Members Other:: lives alone Housing: Apartment Are you a primary rn managed care to a significant other at home: No Do you presently have visiting nurse or other home services: No Alcohol intake: current Alcohol intake frequency: a few times a week Patient Tobacco Use Status: Never used Tobacco Tobacco use type: Cigarette e-Cigarette/Vaping Use: Never Used Second Hand Smoke Exposure: No service: No Current occupational status: retired Cognitive needs: No Hearing needs: No Vision needs: No Review of Systems Const All systems reviewed & are unremarkable except as noted in HPI and below Physical Exam Vital Signs: Last Vital Signs Temp 97.8 F 12/10/24 12:18 Pulse 54 12/10/24 12:18 BP 128/64 12/10/24 12:18 Pulse Ox 98 12/10/24 12:18 Oxygen Delivery Method Room Air 12/10/24 12:18 BMI result Body Mass Index 26.3 Assessment & Plan Assessment & Plan (1) Acute bacterial conjunctivitis of right eye: Code(s): H10.31 - Unspecified acute conjunctivitis, right eye Plan: Explained how to use the ointment to the patient. Sent a prescription to the pharmacy and told her that if it spreads to her other eye, she should call us and let us know and I can send some more ointment for the other eye. Medications: New erythromycin Apply to right eye 4 times a day while awake 0.5 inches ophthalmic-Right QID 3.5 grams 0RF Coding Level of Care Code Est Pt Level 3 (27509) Diagnoses Acute bacterial conjunctivitis of right eye H10.31
== END 2024-12-10 13:32 | disposition home or self-care (01) ==
PROVIDERS: PCP Internal Medicine; Visit Provider Physician Assistant
DX: H10.31 Unspecified acute conjunctivitis, right eye (principal)

== ENCOUNTER → 2024-12-10 11:46 | Outpatient (BNVA) | payer MEDICARE, OTHER, SELFPAY | PROVIDERS: PCP Internal Medicine; Visit Provider Physician Assistant | DX: H10.31 Unspecified acute conjunctivitis, right eye (principal) | CPT/HCPCS: 99212 ==

== ENCOUNTER 2024-12-16 11:51 | Outpatient (AMB) | payer MEDICARE, OTHER, SELFPAY ==
[2024-12-16 12:07] VITALS: BP 112/60; PULSE 70; TEMP 36.4; O2SAT 96; BMI 26.2
--- NOTE | 2024-12-16 12:07 | MHC.OFFWIV ---
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 - The fall occurred at approximately 10:00 AM (3 hours ago) in her apartment building when her shoe caught on the carpet, causing her to fall on her left side. - She reports significant bruising around the left eye and tenderness in the left knee, which was surgically replaced last fall. - The knee is swollen and tender to touch, but swelling has decreased since the incident. - The patient is on anticoagulant therapy with eliquis. - No loss of consciousness was reported, and she is mentating well with no visual changes or dizziness. Physical Exam General: Cooperative, healthy appearing, comfortable, no acute distress and well developed Orientation: Patient oriented x3, mentating well Limitations: No limitations Head: Normal to inspection, no visual changes, no dizziness, no loss of consciousness Ears: Hearing grossly normal bilaterally Nose: Normal External nose present Face and sinus: Normal facial exam Mouth: normal, moist oral mucosa Eyes: Appearance normal, both eyes and all related structures, lateral to the left eye with edema and ecchymosis Neck: Normal visual inspection and Yes full ROM Chest: no TTP left ribs Respiratory: Normal respiratory effort and able to speak in complete sentences. Skin: no rashes or lesions noted Neuro: Patient oriented x3, mentating well Extremities: moving all extremities normally, left lateral knee swollen and tender, full range of motion with the left shoulder, elbow and wrist. [facility] Medical History (Updated 12/16/24 @ 12:57 by Adelita Hernández PA-C) A-fib HLD (hyperlipidemia) HTN (hypertension) Felipe's esophagus GERD (gastroesophageal reflux disease) History of foot sprain (10/31/24) Annual physical exam Surgical History Hx of neck surgery History of esophagogastroduodenoscopy (EGD) H/O colonoscopy History of total left knee replacement H/O right knee surgery History of cataract surgery Family History Father Prostate cancer Mother Hypertension Heart attack Brother Heart attack Other Substance use disorder Social History Household Members Other:: lives alone Housing: Apartment Are you a primary acute care nurse to a significant other at home: No Do you presently have visiting nurse or other home services: No Alcohol intake: current Alcohol intake frequency: a few times a week Patient Tobacco Use Status: Never used Tobacco Tobacco use type: Cigarette e-Cigarette/Vaping Use: Never Used Second Hand Smoke Exposure: No Patient : No service: No Current occupational status: retired Cognitive needs: No Hearing needs: No Vision needs: No Review of Systems Const All systems reviewed & are unremarkable except as noted in HPI and below Physical Exam Vital Signs: Last Vital Signs Temp 97.5 F 12/16/24 12:07 Pulse 70 12/16/24 12:07 BP 112/60 12/16/24 12:07 Pulse Ox 96 12/16/24 12:07 Oxygen Delivery Method Room Air 12/16/24 12:07 BMI result Body Mass Index 26.2 Assessment & Plan Assessment & Plan (1) Fall as cause of accidental injury at home as place of occurrence: Code(s): W19.XXXA - Unspecified fall, initial encounter; Y92.009 - Unspecified place in unspecified non-institutional (private) residence as the place of occurrence of the external cause Qualifiers: Encounter type: initial encounter Qualified Code(s): W19.XXXA - Unspecified fall, initial encounter; Y92.009 - Unspecified place in unspecified non-institutional (private) residence as the place of occurrence of the external cause Plan: Plan Patient was informed and verbally consented to the use of an ambient scribe for clinic note documentation during this visit - Advise application of ice and use of ibuprofen for pain management. - Prescribed muscle relaxants to manage potential muscle strain, likely will present itself tomorrow. - Monitor for any signs of worsening symptoms or complications due to anticoagulant therapy. - Monitor for any changes in vision or increased pain. - Caution advised due to increased risk of bleeding; monitor for any signs of bleeding. Medications: New cyclobenzaprine 5 mg PO Q8H PRN 20 tabs 0RF Muscle Spasm Coding Level of Care Code Est Pt Level 3 (89212) Diagnoses Fall as cause of accidental injury in home as place of occurrence, initial encounter W19.XXXA; Y92.009 Encounter type: initial encounter
== END 2024-12-16 13:46 | disposition home or self-care (01) ==
PROVIDERS: PCP Internal Medicine; Visit Provider Physician Assistant
DX: H10.31 Unspecified acute conjunctivitis, right eye (principal); W19.XXXA Unspecified fall, initial encounter; Y92.009 Unspecified place in unspecified non-institutional (private) residence as the place of occurrence of the external cause; S80.02XA Contusion of left knee, initial encounter

== ENCOUNTER → 2024-12-16 11:51 | Outpatient (BNVA) | payer MEDICARE, OTHER, SELFPAY | PROVIDERS: PCP Internal Medicine; Visit Provider Physician Assistant | DX: S80.02XA Contusion of left knee, initial encounter (principal); S00.12XA Contusion of left eyelid and periocular area, initial encounter; W19.XXXA Unspecified fall, initial encounter; Y93.9 Activity, unspecified; Y92.009 Unspecified place in unspecified non-institutional (private) residence as the place of occurrence of the external cause | CPT/HCPCS: 99212 ==

== ENCOUNTER 2024-12-21 12:21 | Outpatient (REF) | payer MEDICARE, OTHER, SELFPAY ==
--- NOTE | ~2024-12-21 | XR_ITS ---
EXAMINATION: XR KNEE, LEFT CLINICAL INFORMATION: M25.562 - Pain in left knee COMPARISON: None available. TECHNIQUE: AP and lateral views of the left knee. FINDINGS: Prosthetic components of the total knee arthroplasty are appropriately aligned without periprosthetic fracture or abnormal lucency. There is no component migration or abnormal periprosthetic lucency. There is no joint effusion. XR/XR knee LT 2V IMPRESSION: Unremarkable left knee post: Pneumothorax. Electronically signed by: Duane Herrera MD 12/21/2024 12:52 PM EDT
== END 2024-12-21 12:22 | disposition home or self-care (01) ==
LOC: HO.XRAY 12:21
PROVIDERS: PCP Internal Medicine
DX: M25.562 Pain in left knee (principal)
CPT/HCPCS: 73560

== ENCOUNTER → 2024-12-21 12:25 | Outpatient (BNV) | payer MEDICARE, OTHER, SELFPAY | PROVIDERS: PCP Internal Medicine; Visit Provider Radiology Diagnostic Radiology | DX: M25.562 Pain in left knee (principal) | CPT/HCPCS: 73560 ==

== ENCOUNTER 2025-03-03 11:22 | Outpatient (AMB) | payer MEDICARE, OTHER, SELFPAY ==
--- NOTE | 2025-03-03 11:28 | A.OFFPC_ITS ---
Vital Signs 03/03/25 11:30 Height 5 ft 4 in Weight 155 lb BMI 26.6 BP 130/64 Blood Pressure Location Lt brachial Position Sitting Pulse 65 Pulse Source Pulse Oximeter Temp 97.1 F Temp Source Temporal Artery Scan Pulse Oximetry (%) 95 Oxygen Delivery Method Room Air Intake Visit Reasons: 6 Months Intake Note: Patient is here to follow up on GERD,HTN, Afib, Polymyalgia rheumatica. Healthcare Corporate Account Director Required: No Echocardiograph Tech: Not Required per policy Accompanied by: Self / Same As Patient Allergies cephalexin (From Keflex) Adverse Reaction (Mild, Verified 03/03/25 11:59) Nausea Medication List - Last Reconciled 03/03/25 by CHIVO Lafleur-Rachel amlodipine 5 mg PO DAILY atorvastatin 40 mg PO DAILY B complex with F-nwgbijpck-Ki caps PO budesonide DR-ER 9 mg (3 x 3 mg) PO DAILY cholecalciferol (vitamin D3) 50 mcg PO DAILY [collagen protein powder PO DAILY] cyclobenzaprine 5 mg PO Q8H PRN erythromycin 0.5 inches ophthalmic-Right QID famotidine 40 mg PO DAILY lisinopril 20 mg PO BID metoprolol succinate ER 25 mg PO DAILY bicmtcsrivee-bqdxhgpc-yujntv 1 tab PO DAILY rivaroxaban (Xarelto) 20 mg PO DAILY sertraline 25 mg PO DAILY Tobacco use date assessed: 03/03/25 Fall risk assessment: 1 Fall in past year (end of november) Last assessed Fall Risk: 03/03/25 Dental Screening Dental Screen Date: 09/01/24 HPI 6 Months HPI Details 84-year-old female with past medical his tory of atrial fibrillation on anticoagulation, GERD with Felipe's esophagus, hypercholesterolemia, hypertension and polymyalgia rheumatica last seen 08/2024 coming in for follow up. In review of the notes, patient was seen by cardiology 12/2024 no changes in medication and follow up in 1 year. She underwent EGD with colonoscopy 10/[address] Cameron. Presenting with concerns related to recent endoscopy and colonoscopy findings. The patient has a hiatal hernia causing significant acid reflux and inflammation in the esophagus, with a known small segment of Felipe's esophagus. The patient has diverticulosis and had several polyps removed during the colonoscopy, including tubular adenomas, which are precancerous but were negative for cancer. The patient has hemorrhoids, and it is advised to avoid straining to manage this condition. The patient's atrial fibrillation is currently well-managed, with regular follow-ups with a pbx wire chief. The patient has a history of hypertension, with recent blood pressure readings slightly elevated but generally well-controlled. [facility] Medical History A-fib HLD (hyperlipidemia) HTN (hypertension) Felipe's esophagus GERD (gastroesophageal reflux disease) History of foot sprain (10/31/24) Annual physical exam Surgical History Hx of neck surgery History of esophagogastroduodenoscopy (EGD) H/O colonoscopy History of total left knee replacement H/O right knee surgery History of cataract surgery Family History Father Prostate cancer Mother Hypertension Heart attack Brother Heart attack Other Substance use disorder Social History Household Members Other:: lives alone Housing: Apartment Are you a primary senior care manager to a significant other at home: No Do you presently have visiting nurse or other home services: No Alcohol intake: current Alcohol intake frequency: a few times a week Patient Tobacco Use Status: Never used Tobacco Tobacco use type: Cigarette e-Cigarette/Vaping Use: Never Used Second Hand Smoke Exposure: No service: No Current occupational status: retired Cognitive needs: No Hearing needs: No Vision needs: No Questionnaire PHQ-9 Over the last 2 weeks, how often have you been bothered by any of the following problems? 1. Little interest or pleasure in doing things: not at all 2. Feeling down, depressed, or hopeless: not at all 3. Trouble falling or staying asleep, or sleeping too much: not at all 4. Feeling tired or having little energy: not at all 5. Poor appetite or overeating: not at all 6. Feeling bad about yourself - or that you are a failure or have let yourself or your family down: not at all 7. Trouble concentrating on things, such as reading the newspaper or watching television: not at all 8. Moving or speaking so slowly that other people could have noticed. Or the opposite - being so fidgety or restless that you have been moving around a lot more than usual: not at all 9. Thoughts that you would be better off or of hurting yourself in some way: not at all Total score: 0 Depression Screening Interpretation: Negative Depression Screening Done: Yes Source: Developed by Drs. Artemio Jose, Connie Gallegos, Philippe Littlejohn and colleagues, with an educational dulce from [employer]. Thrive Questionnaire Date Thrive assessed: 03/03/25 I am a: Patient What is your living situation today?: I have a steady place to live Within the past 12 months, did the food you bought not last and you didn't have the money to get more?: Never true Within the past 12 months, did you worry whether your food would run out before you got money to buy more?: Never true Do you have trouble paying for medicines?: No Do you have trouble getting transportation to medical appointments?: No Do you have trouble paying your heating and electricity bill?: No Do you have trouble taking care of your child, family member or friend?: No Do you have trouble with day-to-day activities such as bathing, preparing meals, shopping, managing finances, etc.?: No Are you currently unemployed and looking for a job?: No Are you interested in more education?: No Please select the resources that you would like help with: None THRIVE Score: 0 AUDIT C Alcohol Use Questionnaire (AUDIT-C) 1. How often do you have a drink containing alcohol?: Never Total Score: 0 ANH-7 AMB Questionnaire ANH-7 Date ANH - 7 assessed: 06/03/24 Source: Developed by Drs. Artemio Jose, Connie Gallegos, Philippe Littlejohn and colleagues, with an educational dulce from [employer]. Review of Systems Const Denies body aches, Denies chills, Denies fever(s), Denies headache(s) and Denies poor appetite Eyes Reports no additional complaints ENT Reports dysphagia, Denies dizziness and Denies headache(s) Card Denies chest pain, Denies syncope, Denies edema, Denies irregular heart rhythm, Denies lightheadedness and Denies dyspnea Resp Denies cough and Denies dyspnea GI Denies abdominal pain, Denies constipation, Reports dysphagia, Denies diarrhea, Denies nausea and Denies vomiting Reports no additional complaints Musc Reports no additional complaints and Denies abnormal gait Skin/Breast Reports system reviewed and no additional complaints, except as documented Neuro Denies abnormal gait, Denies dizziness, Denies syncope and Denies headache(s) Psych Reports no additional complaints Physical exam (Primary Care) Vital Signs: Last Vital Signs Temp 97.1 F 03/03/25 11:30 Pulse 65 03/03/25 11:30 BP 130/64 03/03/25 11:30 Pulse Ox 95 03/03/25 11:30 Oxygen Delivery Method Room Air 03/03/25 11:30 BMI result Body Mass Index 26.6 Tobacco/Smoking Status: Tobacco use Status Tobacco use date assessed 03/03/25 03/03/25 11:36 Patient Tobacco Use Status Never used Tobacco 03/03/25 11:36 Tobacco use type Cigarette 03/03/25 11:36 e-Cigarette/Vaping Use Never Used 03/03/25 11:36 PHQ-9: PHQ-9 Score PHQ-9: Total score 0 03/03/25 12:11 Depression Screening Interpretation: Negative Thrive Assessment: Date of Thrive Assessment Date Thrive assessed 03/03/25 03/03/25 11:36 Const General: cooperative, healthy appearing, comfortable and no acute distress Orientation/consciousness: patient oriented x3 HENMT Head: Yes normocephalic Ears: hearing grossly normal bilaterally General nose exam: Normal external nose present Eyes General: appearance normal, both eyes and all related structures Conjunctivae: conjunctivae normal Neck Neck: Yes full ROM and Yes no lymphadenopathy Resp Effort & Inspection: normal respiratory effort Auscultation: clear to auscultation bilaterally, no crackles, no rales, no rhonchi and no wheezes Cardio Rate: regular rate Rhythm: regular rhythm Skin General skin exam: no rashes or lesions noted Neuro General: patient oriented x3 Gait exam (Neuro): Normal gait present Extrem General: Yes normal to inspection, Yes full ROM and No edema Psych Affect: normal affect Attitude: cooperative Insight: Good insight present (Psych) Judgement: Good judgement present (Psych) Office Procedures Flu Questionnaire Does the patient have a severe egg allergy?: No Does the patient have severe life threatening allergies?: No Does the patient have a fever or illness today?: No Has the patient ever had Guillain-Pfeifer Syndrome?: No Has the patient ever had any past reaction to a flu shot?: No Immunizations Fluarix [id number] (PF) 45 mcg (15 mcg x 3)/0.5 mL IM syringe Performing Provider: Nina Daniels PA-C [facility] Administered by: Lisa Gimenez CMA on 03/03/25 12:11 Dose Route Admin Location Dispensed Lot Number Expiration Date NDC Senior Clinical Project Manager 0.5 mL IM Left Deltoid 0.5 mL [id number] 11/13/25 [id number] [employer] VIS Given Date VIS Provided VIS Publication Date 03/03/25 Single Vaccine 24 Eligibility Eligibility Date Funding Source Not [facility] Eligible 03/03/25 Private Coding Level of Care Code Est Pt Level 3 (11768) Diagnoses GERD (gastroesophageal reflux disease) K21.9 Hypertension I10 Hypercholesterolemia E78.00 Atrial fibrillation I48.91 Lymphocytic colitis K52.832 Tubular adenoma D36.9 Assessment & Plan Assessment & Plan (1) GERD (gastroesophageal reflux disease): Code(s): K21.9 - Gastro-esophageal reflux disease without esophagitis Category: Medical Plan: Avoid trigger foods such as citrus, tomato products, soda, caffeine, spicy foods and other foods that may be irritating to your stomach. Avoid laying flat 3-4 hours after eating and elevate the head of the bed 30 degrees to prevent acid from moving into the esophagus. Continue on famotidine. EGD completed 10/[address] Cameron. She is due to follow up with GI and message was sent to their office today. (2) Hypertension: Code(s): I10 - Essential (primary) hypertension Category: Medical Plan: Continue on current blood pressure medication. Avoid salt intake and encourage healthy diet and regular exercise. She will monitor blood pressure at home as it is mildly elevated in the office today. (3) Hypercholesterolemia: Code(s): E78.00 - Pure hypercholesterolemia, unspecified Category: Medical Plan: Avoid foods that are high in cholesterol such as red meat, fried foods, eggs and baked goods. Triglyceride goal of less than 150 and LDL goal of less than 70. Continue on atorvastatin 40 (4) Atrial fibrillation: Code(s): I48.91 - Unspecified atrial fibrillation Category: Medical Plan: Currently on anticoagulation with Xarelto and on rate control with metoprolol. Continue to follow with [facility] Cardiology (5) Lymphocytic colitis: Code(s): K52.832 - Lymphocytic colitis Category: Medical Plan: Was seen by GI for EGD with colonoscopy 10/2024 and follow up was not done. Message was sent to GI office today. (6) Tubular adenoma: Code(s): D36.9 - Benign neoplasm, unspecified site Category: Medical Plan: The tubular adenomas were negative for cancer, but due to their potential to become precancerous, a follow-up colonoscopy in three years is advised. Plan This note was constructed using voice recognition software. While every effort has been made to ensure accuracy and security operations engineer, still areas may have been included sometimes these areas may affect the content or meeting of the given symptoms. Total time spent caring for the patient today was 20 minutes. This includes time spent before the visit reviewing the chart, time spent during the visit, and time spent after the visit and documentation. Patient was informed and verbally consented to the use of an ambient scribe for clinic note documentation during this visit. Orders: Orders Complete Blood Count Auto Diff Today I48.91 - Unspecified atrial fibrillation, Z13.0 - Encounter for screening for diseases of the blood and blood-forming organs and certain disorders involving the immune mechanism Vitamin B12 and Folate Today M85.80 - Other specified disorders of bone density and structure, unspecified site, Z13.21 - Encounter for screening for nutritional disorder Vitamin D 25-OH Total Today M85.80 - Other specified disorders of bone density and structure, unspecified site, Z13.21 - Encounter for screening for nutritional disorder Comprehensive Met. Panel Today I48.91 - Unspecified atrial fibrillation, Z00.00 - Encounter for general adult medical examination without abnormal findings Lipid Panel Today E78.00 - Pure hypercholesterolemia, unspecified TSH reflex Free T4 Today M85.80 - Other specified disorders of bone density and structure, unspecified site, Z13.29 - Encounter for screening for other christiane pected endocrine disorder Influenza [id number] Immunization Today Z23 - Encounter for immunization
[2025-03-03 11:30] VITALS: BP 130/64; PULSE 65; TEMP 36.2; O2SAT 95; BMI 26.6
== END 2025-03-03 12:19 | disposition home or self-care (01) ==
LOC: HO.HMCH 11:23
PROVIDERS: PCP Internal Medicine
DX: K21.9 Gastro-esophageal reflux disease without esophagitis (principal); I10 Essential (primary) hypertension; E78.00 Pure hypercholesterolemia, unspecified; I48.91 Unspecified atrial fibrillation; K52.832 Lymphocytic colitis; D36.9 Benign neoplasm, unspecified site; Z23 Encounter for immunization

== ENCOUNTER → 2025-03-03 11:22 | Outpatient (BNVA) | payer MEDICARE, OTHER, SELFPAY | PROVIDERS: PCP Internal Medicine | DX: K21.9 Gastro-esophageal reflux disease without esophagitis (principal); I10 Essential (primary) hypertension; I48.91 Unspecified atrial fibrillation; M35.3 Polymyalgia rheumatica; K22.70 Barrett's esophagus without dysplasia; K44.9 Diaphragmatic hernia without obstruction or gangrene; E78.00 Pure hypercholesterolemia, unspecified; K52.832 Lymphocytic colitis; D36.9 Benign neoplasm, unspecified site; Z23 Encounter for immunization | CPT/HCPCS: 90471; 90656; 96127; 99212 ==

== ENCOUNTER 2025-03-05 14:44 | Outpatient (AMB) | payer MEDICARE, OTHER, SELFPAY ==
--- NOTE | 2025-03-05 14:46 | A.OFFVIS_ITS ---
Vital Signs 03/05/25 14:47 Height 5 ft 4 in Weight 155 lb BMI 26.6 BP 95/47 L Blood Pressure Location Lt brachial Position Sitting Pulse 65 Pulse Oximetry (%) 96 Oxygen Delivery Method Room Air Intake Visit Reasons: Colonoscopy results Intake Note: Patient complex follow up for EGD/Colonoscopy results/August former patient marta was 05/2024. Patient wanted to change provider from August to . Patient cc: hiccups all the time. Denies any other GI issues. Mink Rancher Required: No Accompanied by: Self / Same As Patient Allergies cephalexin (From Enstratius) Adverse Reaction (Mild, Verified 03/03/25 11:59) Nausea Medication List - Last Reconciled 03/05/25 by Eliana Guidry CNP amlodipine 5 mg PO DAILY atorvastatin 40 mg PO DAILY B complex with G-cgytwalpy-Ry caps PO budesonide DR-ER 9 mg PO DAILY PRN cholecalciferol (vitamin D3) 50 mcg PO DAILY [collagen protein powder PO DAILY] cyclobenzaprine 5 mg PO Q8H PRN erythromycin 0.5 inches ophthalmic-Right QID famotidine 40 mg PO DAILY lisinopril 20 mg PO BID metoprolol succinate ER 25 mg PO DAILY rsvotfsabjnl-enokwdvn-qhzhik 1 tab PO DAILY rivaroxaban (Xarelto) 20 mg PO DAILY sertraline 25 mg PO DAILY HPI HPI Colonoscopy results: Details: Patient is a 84-year-old female with PMH of hypertension, hyperlipidemia, AFib on Xarelto. F/U after EGD and colonoscopy in October for known hx of hiatal hernia and review of chronic diarrhea and med mgmt. 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 She reports the hernia is longstanding and remains asymptomatic except for recent new onset hiccups, which she attributes to eating/drinking quickly; denies overt dysphagia or odynophagia. No sensation of food getting stuck except occasionally with clustered pills. GERD sx notable in past but currently controlled on nightly famotidine 40 mg; reflux recurs if missed dose. No retrosternal CP. She denies constipation, though describes history of diarrhea (previously Rx?d budesonide PRN), associated with lymphocytic colitis?currently resolved. Bowel pattern: one regular AM stool, occasional second looser stool soon after, but denies melena, hematochezia, or abd pain. Monitors diet, avoids triggers except for periodic chocolate. No recent unexplained wt loss; slight recent wt gain (~7 lbs/8-9 mo). No respiratory or complaints. Med hx relevant for recent foot sprain; no hospitalizations for GI issues since October. No med changes outside GI regimen. [facility] Medical History (Updated 03/08/25 @ 10:34 by Eliana Guidry CNP) Hiatal hernia A-fib HLD (hyperlipidemia) HTN (hypertension) Felipe's esophagus GERD (gastroesophageal reflux disease) History of foot sprain (10/31/24) Annual physical exam Surgical History Hx of neck surgery History of esophagogastroduodenoscopy (EGD) H/O colonoscopy History of total left knee replacement H/O right knee surgery History of cataract surgery Family History Father Prostate cancer Mother Hypertension Heart attack Brother Heart attack Other Substance use disorder Social History Household Members Other:: lives alone Housing: Apartment Are you a primary out of school hours care worker to a significant other at home: No Do you presently have visiting nurse or other home services: No Alcohol intake: current Alcohol intake frequency: a few times a week Patient Tobacco Use Status: Never used Tobacco Tobacco use type: Cigarette e-Cigarette/Vaping Use: Never Used Second Hand Smoke Exposure: No service: No Current occupational status: retired Cognitive needs: No Hearing needs: No Vision needs: No Review of Systems Const Reports as per HPI ENT Reports as per HPI Card Reports as per HPI Resp Reports as per HPI GI Reports as per HPI Reports as per HPI Physical Exam Vital Signs: Last Vital Signs Pulse 65 03/05/25 14:47 BP 95/47 L 03/05/25 14:47 Pulse Ox 96 03/05/25 14:47 Oxygen Delivery Method Room Air 03/05/25 14:47 BMI result Body Mass Index 26.6 Const General: healthy appearing, no acute distress and well developed Nutritional Appearance: average body habitus Orientation/consciousness: patient oriented x3 HEENT Head: Yes normal to inspection, Yes normocephalic and Yes atraumatic Face and sinus: Yes normal facial exam Eyes General: appearance normal, both eyes and all related structures Neck Neck: Yes normal visual inspection Resp Effort & Inspection: normal respiratory effort, able to speak in complete sentences, no tracheal deviation and symmetric chest movement Cardio Jugular venous distension: no JVD GI Inspection: Yes normal to inspection, No distended and Yes obesity Palpation (GI): Soft to palpation, not firm, nontender and No hepatosplenomegaly present Auscultation: normal bowel sounds Neuro General: patient oriented x3 Gait exam (Neuro): Normal gait present Psych Appearance: grossly normal Mental Status: mental status grossly normal Speech and movement: Normal speech and movement present Affect: normal affect Attitude: cooperative Thought process: Normal thought process present Thought content: Normal thought content present Insight: Good insight present (Psych) Judgement: Good judgement present (Psych) Results Reviewed Results Reviewed: Date of Service: 11/04/24 Narrative: Operative Information Procedure Description: EGD, Colonoscopy Indication: abn bowel habits Anesthesia: MAC FLEXIBLE TRANSORAL UPPER GASTROINTESTINAL ENDOSCOPY AND COLONOSCOPY PROCEDURE NOTE UPPER ENDOSCOPY Consent: Indications for the procedure and potential complications of bleeding, perforation, reaction to medications and missed diagnosis were discussed with the patient and informed consent was obtained. Instrument: Olympus GIF H 190 J mid size upper endoscope Monitoring: Vital signs and clinical assessment, continuous EKG monitoring, Pulse oximetry, Carbon Dioxide monitoring and blood pressure monitoring were done throughout the procedure. Procedure: The patient was placed in the left lateral decubitis position and pre-procedure medications were administered and a bite block was placed. The endoscope was inserted into the mouth and advanced under direct vision to the third part of duodenum. A careful inspection was made as the upper endoscope was withdrawn including a retroflexed examination of the proximal stomach; Findings and interventions are described below. Findings: Larynx:normal Esophagus: GE junction at 30 cm, diaphragm hiatus at 34 cm, consistent with 4 cm fixed hiatal hernia, with mild esophagitis and schatzki ring with short s egment of possible barretts esophagus --esophageal nodule noted at 20 cm, bx taken Stomach: mild gastritis. Biopsies were obtained. Grade 2 flap valve on retroflexed examination of the cardia. Duodenum: Normal bulb and descending duodenum, bx taken Intervention: Biopsies as noted above, COLONOSCOPY Instrument: Olympus variable stiffness pediatric scope 190L Colonoscopy Monitoring: Vital signs and clinical assessment, continuous EKG monitoring, Pulse oximetry, Carbon Dioxide monitoring and blood pressure monitoring were done throughout the procedure. Colon withdrawal time was 10 minutes. Procedure: The patient was placed in the left lateral decubitis position and pre-procedure medications were administered. After a digital rectal examination of the ano-rectum, the video colonoscope was inserted into the rectum and advanced through the colon to the cecum/TI. The colonoscope was slowly withdrawn in a retrograde panoramic fashion and the colon mucosa was carefully examined including a retroflexed view of the rectum. Findings and interventions are described below. Procedure Difficulty:moderate Findings: Terminal Ileum-normal, bx taken random colon bx taken Cecum: x 2 flat polyps 6-8 raised with eleview, removed with cold snare,, with one clip applied to on area due to oozing. Ascending Colon: x 1 flat polyp 6-7 mm lifted with eleview and removed with cold snare, x 1 sessile polyp 4-5 mm removed with cold forceps Transverse Colon -normal Descending Colon:normal Sigmoid Colon: moderate diverticulosis Rectum: Retroflexion with small internal hemorrhoids, grade I Anorectum - normal Colon preparation: [place] Bowel Preparation Scale Right colon; 2 Transverse colon: 2 Left colon; 2 (0 = Unprepared colon segment with mucosa not seen due to solid stool that cannot be cleared. 1 = Portion of mucosa of the colon segment seen, but other areas of the colon segment not well seen due to staining, residual stool and/or opaque liquid. 2 = Minor amount of residual staining, small fragments of stool and/or opaque liquid, but mucosa of colon segment seen well. 3 = Entire mucosa of colon segment seen well with no residual staining, small fragments of stool or opaque liquid) Impression and Post Procedure Diagnosis: Endoscopy Findings: hiatal hernia schatzki ring esophagitis, mild small segment barretts Colonoscopy Findings: diverticulosis colon polyps internal hemorrhoids Plan: Await Pathology results Repeat Colonoscopy in 3 years if health allows or earlier if clinically indicated High fiber diet leaflet avoid straining at stool, epsom salts and sitz bath, anusol supps or cream restart rivaroxiban 11/06/24 PATHOLOGY: Collected: 11/04/24 Location: [facility] Received: 11/04/24 ADDENDUM REPORT Addendum Addendum #1 Immunostain for H. pylori on B is negative. Additional level with AB/PAS on C is negative for intestinal metaplasia. Controls stain appropriately. Electronically Signed By: Mayela Fernandes 11/09/24 1110 Diagnosis A. Duodenum, biopsy: Duodenal mucosa with preserved villi and no specific change. B. Stomach, biopsy: Gastric antral/body mucosa with minimal chronic inactive gastritis; negative for intestinal metaplasia and dysplasia. C. Gastroesophageal junction, biopsy: Squamocolumnar mucosa with minimal chronic inflammation; no intestinal metaplasia seen on initial levels; negative for dysplasia. D. Esophageal nodule, biopsy: Benign squamous mucosa with prominent subepithelial spindle cells suggesting leiomyoma (see comment). E. Colon, ascending, polyps: Tubular adenomas, three; negative for high-grade dysplasia and carcinoma. F. Colon, cecal polyps: Tubular adenomas, two; negative for high-grade dysplasia and carcinoma. G. Terminal ileum, biopsy: Ileal mucosa with no specific change. H. Colon, random, biopsy: Colonic mucosa with lymphoid aggregates and increased eosinophils, otherwise no specific change (see comment). Comment: (B): Immunostain for H. pylori pending; addendum to follow. (C): Additional level with AB/PAS stain pending; addendum to follow. (H): A drug related injury cannot be excluded. Patient: Dinora Donald Age/Sex: 84/F MR#: [id number] Page 1 of 3 Surgical Pathology [id number] Clinical History Pre-Op Dx: Felipe's esophagus without dysphagia Post-Op Dx: Hiatal hernia, esophagitis, possible Felipe's, gastritis, esophageal nodule, polyps, internal hemorrhoids, diverticulosis Assessment & Plan Assessment & Plan (1) Barretts esophagus: Comment: 11/04/24 EGD hiatal hernia, schatzki ring, esophagitis, mild small segment barretts. Recommendations for repeat in 3-5 years. Code(s): K22.70 - Felipe's esophagus without dysplasia Category: Medical Qualifiers: Felipe's esophagus type: without dysplasia Qualified Code(s): K22.70 - Felipe's esophagus without dysplasia Plan: EGD findings as above; current sx well controlled on famotidine; no dysphagia or odynophagia. Additional Testing: Barium swallow ordered to further define anatomy and confirm absence of complications; continue surveillance EGD per guidelines ( Q3-5y) Medication Management: Continue famotidine 40 mg QHS; consider escalation to PPI if breakthrough sx. Lifestyle Recommendations: Maintain anti-reflux diet; avoid triggers (fatty/spicy foods, chocolate); elevate HOB; small, frequent meals; avoid rapid eating/drinking and minimize use of straws; avoid lying supine post-prandially; wt management as needed. Follow-Up: Repeat upper endoscopy per guideline; GI F/U after barium swallow or sooner if new/worsening sx. (2) Lymphocytic colitis: Comment: 11/04/24 Colonoscopy complete with adequate prep-diverticulosis, < 10mm TA (ascending, cecum), internal hemorrhoids. Recommendations for repeat in 3 years (2027) Code(s): K52.832 - Lymphocytic colitis Category: Medical Plan: 10/2024 biopsy with evidence of colon lymphoid aggregates and increased eosinophils-proven dx; no active diarrhea. Recommendations for repeat in 3 years if health remains stable. Additional Testing: None indicated. Medication Management: Discontinue budesonide PRN unless recurrent sx; monitor. Lifestyle Recommendations: Continue monitoring diet; re-initiate therapy only if relapse occurs. Follow-Up: Routine GI F/U; PRN if return of diarrhea. Plan Follow-up after barium swallow study or sooner as needed Time: I spent a total of 30 minutes on the date of encounter which includes: Preparing to see the patient (reviewed previous documentation, test results and medical history) Performing a medically appropriate exam and/or evaluation Ordering medications, tests, and procedures Documenting clinical information in the health record Orders: Orders FL barium swallow 03/05/25 Eliana Guidry CNP K21.9 - Gastro-esophageal reflux disease without esophagitis, K22.70 - Felipe's esophagus without dysplasia, K44.9 - Diaphragmatic hernia without obstruction or gangrene Medications: Changed From budesonide DR-ER 9 mg (3 x 3 mg) PO DAILY 90 ea 6RF K52.832 - Lymphocytic colitis To budesonide DR-ER 9 mg PO DAILY PRN K52.832 - Lymphocytic colitis RAMBO Santos Refilled famotidine 40 mg PO DAILY 90 tabs 3RF Eliana Guidry, MEDICAL OFFICE REP K21.9 - Gastro- esophageal reflux disease without esophagitis, K22.70 - Felipe's esophagus without dysplasia, K52.832 - Lymphocytic colitis, R19.7 - Diarrhea, unspecified Coding Level of Care Code Established Pt Est Pt Level 3 (31951) Patient Type Established Diagnoses Felipe's esophagus without dysplasia K22.70 Felipe's esophagus type: without dysplasia Lymphocytic colitis K52.832
[2025-03-05 14:47] VITALS: BP 95/47; PULSE 65; O2SAT 96; BMI 26.6
== END 2025-03-05 15:49 | disposition home or self-care (01) ==
PROVIDERS: PCP Internal Medicine; Visit Provider Nurse Practitioner Family
DX: K22.70 Barrett's esophagus without dysplasia (principal); K52.832 Lymphocytic colitis
CPT/HCPCS: 99213

== ENCOUNTER → 2025-03-05 14:44 | Outpatient (BNVA) | payer MEDICARE, OTHER, SELFPAY | PROVIDERS: PCP Internal Medicine; Visit Provider Nurse Practitioner Family | DX: K22.70 Barrett's esophagus without dysplasia (principal); K52.832 Lymphocytic colitis | CPT/HCPCS: 99212 ==

== ENCOUNTER 2025-03-12 08:52 | Outpatient (REF) | payer MEDICARE, OTHER, SELFPAY ==
[2025-03-12 09:14] LABS: MANUAL DIFF FLAG NO
[2025-03-12 09:24] LABS: Hematocrit 42.3 % (37.0-47.0); Hemoglobin 13.9 g/dl (12.0-16.0); Imm Gran Abs Auto 0.01 X10*3/uL (0.00-0.03); Imm Gran Pct Auto 0.2 % (0.0-0.4); Lymphocytes Absolute Auto 1.6 X10*3/uL (1.2-4.9); Mean Corpuscular HGB Conc 32.9 g/dl (31.0-35.0); Mean Corpuscular Hemoglobin 30.7 pg (27.0-33.0); Mean Corpuscular Volume 93.4 fL (80.0-98.0); NRBC Abs Auto 0.000 X10*3/uL (0.0-0.012); NRBC Pct Auto 0.0 /100WBC (0.0-0.2); Platelet Count 250 X10*3/uL (160-400); Red Blood Count 4.53 X10*6/uL (4.20-5.50); White Blood Count 5.5 X10*3/uL (4.8-10.8)
[2025-03-12 10:27] LABS: Alanine Aminotransferase 22 U/L (0-31); Albumin Level 4.4 g/dL (3.5-5.0); Alkaline Phosphatase 83 U/L (39-117); Anion Gap 13 (12-20); Aspartate Amino Transferase 24 U/L (5-31); Blood Urea Nitrogen 22 mg/dL (9-16); Calcium 9.3 mg/dL (8.4-10.2); Carbon Dioxide 27 mmol/L (22-29); Chloride 106 mmol/L (96-108); Cholesterol 142 mg/dL (<200); Estimated Glomerular Filt Rate > 60; HDL Cholesterol 58 mg/dL (>40); Potassium 4.0 mmol/L (3.3-5.1); Sodium 142 mmol/L (135-145); Total Protein 6.8 g/dL (6.5-8.0); Triglycerides 78 mg/dL (<150)
[2025-03-12 15:06] LABS: Folate 13.5 ng/mL (> or = 4.0); Vitamin B12 753 pg/mL (200-900)
== END 2025-03-12 08:53 | disposition home or self-care (01) ==
LOC: HO.LAB 08:52
DX: Z00.00 Encounter for general adult medical examination without abnormal findings (principal); Z13.0 Encounter for screening for diseases of the blood and blood-forming organs and certain disorders involving the immune mechanism; Z13.21 Encounter for screening for nutritional disorder; Z13.29 Encounter for screening for other suspected endocrine disorder; I48.91 Unspecified atrial fibrillation; E78.00 Pure hypercholesterolemia, unspecified; M85.80 Other specified disorders of bone density and structure, unspecified site
CPT/HCPCS: 36415; 80053; 80061; 82306; 82607; 82746; 84443; 85025

== ENCOUNTER 2025-05-10 07:44 | Outpatient (REF) | payer MEDICARE, OTHER, SELFPAY ==
--- NOTE | ~2025-05-10 | FL_ITS ---
EXAMINATION: XR BARIUM SWALLOW CLINICAL INFORMATION: Felipe's esophagus without dysplasia. Patient notes history of Schatzki's ring. COMPARISON: None available. TECHNIQUE: Routine upright barium swallow with thick barium and saltine crackers and thin barium in prone lying position was performed. FINDINGS: Following oral administration of thick barium in upright view there is normal propagation bolus from the oral cavity through the pharynx, esophagus into stomach without any obstruction or narrowing. Incidental finding of laryngeal penetration and aspiration was seen. This cleared with repeated coughing. No retention of barium seen in the valleculae or piriform sinuses. On oral administration of saltine crackers there is normal oral mastication and propagation of solid food from the oral cavity through the pharynx, esophagus into stomach. No intrinsic obstruction or extrinsic compression seen. There is laryngeal penetration noted. On placing patient prone lying and oral administration of thin barium there is good distention of esophagus without obstruction. On placing patient supine there is a moderate size sliding hiatal hernia with moderate gastroesophageal reflux. Incidental finding of a solitary calcified gallstone. FLUOROSCOPY TIME: 2 minutes and 24 seconds DOSE AREA PRODUCT: 1401 uGy-m2 (microgray-meter squared) FL/FL barium swallow IMPRESSION: Moderate size sliding hiatal hernia with moderate gastroesophageal reflux. Laryngeal penetration and aspiration with thick barium and saltine crackers which improved with coughing. Incidental finding of a gallstone. Electronically signed by: Frank Chen MD 05/10/2025 08:34 AM SAÚL
--- OUTSIDE RECORDS SUMMARY | 2025-05-10 07:47 | XMS_ITS ---
Author Name [facility] Organization Unknown Encounters Encounter Type Encounter Reason Primary Diagnosis Location Date Ambulatory [facility] 04/03 Care Team Organization Name Specialty Phone Email Start Date End Da [facility] 04/03/2025
--- OUTSIDE RECORDS SUMMARY | 2025-05-10 07:47 | XMS_ITS | Patient Health Record ---
Author Organization [facility] Address [address] [place] [address] Care Team Providers Care Salvage Supervisor Name Role Phone PCP, Does Not Have A Primary Care Provider Unava Sabrina Del Toro Unavailable [phone] Allergies No Known Allergies Reason For Referral No Information Medications Medication SIG (Take, Route, Fr equency, Duration) Notes Start Date End Date Status Budesonide Active amLODIPine Benzoate Active Sertraline HCl Activ e Xarelto Active Clotrimazole 1 % 1 application Network Controller ally Twice a day; Duration: 14 days Active Famotidine Active Metoprolol Succinate Active Lisinopril Active Social History Tobacco Use: Social History Observation Description Date Details (start date - stop date) Never Smoker NA - NA Sex Assigned At : Social History Observation Description Sex Assigned At Female Tobacco Control (Standard) Question Answer Notes Tobacco use: Nonsmoker Problems Problem Type SNOMED Code ICD Code Onset Dates Problem Status W/U Status Risk Notes Problem Primary hypertension (61374064) Primary hypertension (I10) Active confirmed Vital Signs Heart Rate 62 /min 04/03/2025 Temperature 97.7 degrees Fahrenheit 04/03/2025 Respiratory Rate 20 /min 04/03/2025 Blood pressure diastolic 71 mm Hg 04/03/2025 Oximetry 97 % 04/03/2025 Weight-kg 70.76 kg 04/03/2025 Height 64 in 04/03/2025 Blood pressure systolic 128 mm Hg 04/03/2025 Weight 156 lbs 04/03/2025 BMI 26.77 kg/m2 04/03/2025 Encounters Encounter Location Date Provider Diagnosis [facility] [address] [place] [id number] 04/03/2025Brianna Correia Tinea corporis B35.4 and Primary hypertension I10 Assessments Encounter Date Diagnosis (ICD Code) Assessment Notes Treatment Notes Treatment Clinical Notes Section Notes 04/03/2025 Tinea corporis (ICD-10 - B35.4) You most likely present with a fungal infection of the skin. You should apply Clotrimazole 1% cream to the affected area daily for 2 weeks. Complete resolution can take 3-4 weeks. This condition is infectious, so you should keep infected areas clean, dry and covered to avoid spreading to other parts of your body and others. You will need to follow-up with a Rn Interventional (skin doctor) for further evaluation and management if your symptoms fail to improve with the above therapy. Follow-up with your Primary Care Doctor or return to clinic sooner in the setting of fever, pain, redness, swelling or purulent discharge. These are signs of infection., Ringworm: Care Instructions material was published 04/03/2025 Primary hypertension (ICD-10 - I10) Noted elevated blood pressure initially; patient had not taken usual antihypertensive medication prior to visit. BP improved upon recheck in clinic. No additional concerns of headache, blurred vision, or chest pain reported. Continue to take your Lisinopril and Amlodipine HTN medications as directed. If any headaches, blurry vision, weakness, chest pain go directly to ED. 04/03/2025 Other Please return to the urgent care or follow up with your primary care provider or dermatology for persisting/worsening symptoms. Access your visit summary and after-visit care instructions via our online Patient Portal by visiting [email or web address]. Smoking is exceedingly harmful to your heart and lung health. Please call 5-361-GFBD-NOW or visit https://www.cdc.gov/ tobacco/ to help quit, and improve your intermediate health. The home is the most common place where children and non-smoking adults are exposed to secondhand smoke. Secondhand smoke causes increased risk of asthma, certain cancers or infections, and heart disease in children and adults. Please follow up with your primary care provider if any other concerns: If you do not have a primary care provider you can obtain one by: a) Calling [phone] or b) Going to [email or web address] Plan Of Treatment No Information Insurance Providers Payer Name Payer Address Payer Phone Subscriber Number Group Number Insured Name Patient Relationship to Insured Coverage Start Date Coverage End Date MEDICARE [address] [facility] [place] [phone] [id number] LOREN RODRIGUEZ Self - patient is the insured KRISTIAN NAVARRO (2024) [address] [address] [place] [address] [id number] LOREN RODRIGUEZ Self - patient is the insured Medical (General) History Medical History History ICD Code AFIB high blood pressure PMR
== END 2025-05-10 07:45 | disposition home or self-care (01) ==
LOC: HO.XRAY 07:44
PROVIDERS: Visit Provider Nurse Practitioner Family
DX: K22.70 Barrett's esophagus without dysplasia (principal); K21.9 Gastro-esophageal reflux disease without esophagitis; K44.9 Diaphragmatic hernia without obstruction or gangrene
CPT/HCPCS: 74220

== ENCOUNTER → 2025-05-10 07:45 | Outpatient (BNV) | payer MEDICARE, OTHER, SELFPAY | PROVIDERS: Visit Provider Radiology Diagnostic Radiology | DX: K22.70 Barrett's esophagus without dysplasia (principal); K21.9 Gastro-esophageal reflux disease without esophagitis; K80.20 Calculus of gallbladder without cholecystitis without obstruction | CPT/HCPCS: 74221 ==